=== PATIENT | male | born 1930 | race Two or more races ===

== ENCOUNTER 2018-01-19 08:03 | Inpatient (IN) | payer MEDICARE, MEDICAID ==
[~2018-01-19] VITALS: Ht 160 cm; Wt 84.4 kg
[2018-01-19] MEDS ORDERED: IV NS 0.9% 1,000 ML BAG IV ONE ×2 (08:30→09:30)
[2018-01-19] MEDS ORDERED: ALBUTEROL FS 2.5 MG/0.5 ML VIAL.NEB NEB ONE (08:30)
[2018-01-19] MEDS ORDERED: IPRATROPIUM NEB FS 0.5 MG/2.5 ML AMPUL.NEB NEB ONE (08:30)
[2018-01-19] MEDS ORDERED: MULT-213 PO (08:41)
[2018-01-19] MEDS ORDERED: ASPI-1169 PO (08:41)
[2018-01-19] MEDS ORDERED: DONE5TAB7 PO (08:41)
[2018-01-19] MEDS ORDERED: ACET325T53 PO (08:41)
[2018-01-19] MEDS ORDERED: FAMO-131 PO (08:41)
[2018-01-19] MEDS ORDERED: MIRT15TA PO (08:41)
[2018-01-19] MEDS ORDERED: DIVA125C2 PO (08:41)
[2018-01-19] MEDS ORDERED: AMLO5TAB4 PO (08:41)
[2018-01-19] MEDS ORDERED: LEVO25TA9 PO (08:41)
[2018-01-19] MEDS ORDERED: ASCO500T9 PO (08:41)
[2018-01-19] MEDS ORDERED: DOCU100C36 PO (08:41)
[2018-01-19] MEDS ORDERED: SIMV10TA6 PO (08:41)
[2018-01-19 08:54] LABS: BASOPHILS % (AUTO) 0.2 % (0.0-2.0); HEMATOCRIT 53 % (39-51); HEMOGLOBIN 17.4 g/dL (13.5-17.5); LYMPHOCYTES # (AUTO) 1.5 /CMM (0.8-4.8); LYMPHOCYTES % (AUTO) 7.8 % (20.0-44.0); MEAN CORPUSCULAR HGB CONC 33 g/dl (31.0-36.0); MEAN CORPUSCULAR VOLUME 96 fL (80-96); MONOCYTES # (AUTO) 1.1 /CMM (0.1-1.30); MONOCYTES % (AUTO) 5.9 % (2.0-12.0); NEUTROPHILS # (AUTO) 16.5 /CMM (1.8-8.9); NEUTROPHILS % (AUTO) 86.1 % (43.0-81.0); PLATELET COUNT (AUTO) 86 /CMM (150-450); RDW COEFFICIENT OF VARIATION 16.3 (11.5-15.0); RED BLOOD CELL COUNT(AUTO) 5.55 MIL/uL (4.5-6.0); WHITE BLOOD COUNT (AUTO) 19.2 K/uL (4.3-11.0)
[2018-01-19] MEDS ORDERED: ALBUTEROL FS 2.5 MG/3 ML VIAL.NEB ONE (09:01)
[2018-01-19] MEDS ORDERED: IPRATROPIUM NEB FS 0.5 MG/2.5 ML AMPUL.NEB ONE (09:01)
[2018-01-19 09:16] LABS: INR 1.34 (0.87-1.13)
[2018-01-19 09:17] LABS: ALANINE AMINOTRANSFERASE 55 U/L (12-78); ALKALINE PHOSPHATASE 115 U/L (46-116); ASPARTATE AMINOTRANSFERASE 65 U/L (15-37); BILIRUBIN,DIRECT 0.6 mg/dL (0.0-0.2); BILIRUBIN,TOTAL 2.1 mg/dL (0.2-1.0); CALCIUM, SERUM 11.4 mg/dL (8.5-10.1); CARBON DIOXIDE 25 mmol/L (21-32); GLUCOSE 126 mg/dL (74-106); POTASSIUM 3.8 mmol/L (3.5-5.1); TOTAL PROTEIN, SERUM 9.6 g/dL (6.4-8.2)
[2018-01-19 09:22] LABS: B-TYPE NATRIURETIC PEPTIDE 4555 PG/ML (0-125); LIPASE 325 U/L (73-393); SODIUM SERUM 175 mmol/L (136-145)
[2018-01-19 09:23] LABS: CHLORIDE 136 mmol/L (98-107); UREA NITROGEN, BLOOD 99 mg/dL (7-18)
[2018-01-19 09:24] LABS: TROPONIN I 0.603 ng/mL (0.00-0.056)
[2018-01-19 09:26] LABS: APPEARANCE,URINE Cloudy (CLEAR); BILIRUBIN,URINE MODERATE (NEGATIVE); BLOOD, URINE Large Ery/uL (NEGATIVE); COLOR,URINE Amber (YELLOW); KETONES,URINE 15 (NEGATIVE); LEUKOCYTE ESTERASE ,URINE Trace (NEGATIVE); NITRITE, URINE Positive (NEGATIVE); PH,URINE 5.5 (5.0-8.0); PROTEIN,URINE >=300 mg/dl (NEGATIVE); UGLUCOSE Negative (NEGATIVE)
[2018-01-19] MEDS ORDERED: ASPIRIN 300 MG/SUPP.RECT RC ONE ×2 (09:30→09:46)
[2018-01-19] MEDS ORDERED: VANCOMYCIN 1 GM in IV D5W 250 ML IV ONE (09:30)
[2018-01-19] MEDS ORDERED: PIPERACILLIN /TAZOBACTAM 3.375 G in IV D5W 50 ML IV ONE (09:30)
[2018-01-19 09:43] LABS: RBC,URINE TOO NUMEROUS TO COUN /HPF (0-2)
[2018-01-19 09:46] LABS: BACTERIA,URINE Moderate /HPF (None Seen); SQUAMOUS EPITHELIAL CELL,UR Rare /HPF (None Seen)
[2018-01-19 09:47] LABS: BAND % (MANUAL) 3 % (0.0-5.0); EOSINOPHILS % (MANUAL) 1 % (0-4); LYMPHOCYTES % (MANUAL) 12 % (16-48); MONOCYTES % (MANUAL) 8 % (0-11.0); NEUTROPHILS % (MANUAL) 76 (42-76)
[2018-01-19] MEDS ORDERED: IV NS 0.9% 1,000 ML IV PRN (10:24)
[2018-01-19] MEDS ORDERED: MAG HYDROX/AL HYDROX/SIMETH 30 ML UDC PO PRN (11:00)
[2018-01-19] MEDS ORDERED: ZOLPIDEM TARTRATE 5 MG TABLET PO PRN (11:00)
[2018-01-19] MEDS ORDERED: ONDANSETRON HCL/PF 4 MG/2 ML VIAL IVP PRN (11:00)
[2018-01-19] MEDS: DONEPEZIL 5 MG TABLET PO SCH ×2 (11:00→21:25)
[2018-01-19] MEDS: ASPIRIN 81 MG TAB.CHEW PO SCH (11:00)
[2018-01-19] MEDS: DIVALPROEX SODIUM 125 MG CAP.SPRINK PO SCH ×2 (11:00→21:25)
[2018-01-19] MEDS ORDERED: ACETAMINOPHEN 325 MG TABLET PO PRN (11:00)
[2018-01-19] MEDS: LEVOTHYROXINE SODIUM 25 MCG TABLET PO SCH (11:00)
[2018-01-19] MEDS ORDERED: IV D5/0.45 NACL 1,000 ML IV PRN (11:00)
[2018-01-19] MEDS: MIRTAZAPINE 15 MG TABLET PO SCH ×2 (11:00→22:00)
[2018-01-19 11:13] LABS: THYROID STIMULATING HORMONE 3.015 uIU/mL (0.358-3.74)
[2018-01-19] MEDS ORDERED: IV NS 0.9% 1,000 ML IV SCH (11:22)
[2018-01-19] MEDS: IV 1/2NS 1000 ML 1,000 ML IV PRN ×2 (11:52→21:26)
[2018-01-19 12:00] VITALS: BP 123/82
[2018-01-19] MEDS: ENOXAPARIN SODIUM 30 MG/0.3 ML DISP.SYRIN SQ SCH (12:54)
[2018-01-19 16:00] VITALS: BP 94/62
[2018-01-19 20:00] VITALS: BP 101/62
[2018-01-19 22:01] VITALS: BP 94/62
[2018-01-20] VITALS (15 sets, daily range): BP systolic 75–115; BP diastolic 39–72
[2018-01-20] MEDS: IV 1/2NS 1000 ML 1,000 ML IV PRN (05:54)
[2018-01-20 07:12] LABS: BASOPHILS % (AUTO) 0.1 % (0.0-2.0); EOSINOPHILS % (AUTO) 0.2 % (0.0-6.0); HEMATOCRIT 43 % (39-51); HEMOGLOBIN 14.2 g/dL (13.5-17.5); LYMPHOCYTES # (AUTO) 1.5 /CMM (0.8-4.8); LYMPHOCYTES % (AUTO) 8.3 % (20.0-44.0); MEAN CORPUSCULAR HGB CONC 33 g/dl (31.0-36.0); MEAN CORPUSCULAR VOLUME 97 fL (80-96); MONOCYTES # (AUTO) 0.5 /CMM (0.1-1.30); MONOCYTES % (AUTO) 3.1 % (2.0-12.0); NEUTROPHILS # (AUTO) 15.5 /CMM (1.8-8.9); NEUTROPHILS % (AUTO) 88.3 % (43.0-81.0); RDW COEFFICIENT OF VARIATION 16.8 (11.5-15.0); RED BLOOD CELL COUNT(AUTO) 4.43 MIL/uL (4.5-6.0); WHITE BLOOD COUNT (AUTO) 17.6 K/uL (4.3-11.0)
[2018-01-20 07:18] LABS: ALANINE AMINOTRANSFERASE 48 U/L (12-78); ALBUMIN 2.2 g/dL (3.4-5.0); ALKALINE PHOSPHATASE 89 U/L (46-116); ASPARTATE AMINOTRANSFERASE 74 U/L (15-37); BILIRUBIN,TOTAL 2.1 mg/dL (0.2-1.0); CALCIUM, SERUM 9.8 mg/dL (8.5-10.1); CARBON DIOXIDE 26 mmol/L (21-32); CREATININE 2.6 mg/dL (0.6-1.3); GLUCOSE 75 mg/dL (74-106); MAGNESIUM 3.4 mg/dL (1.8-2.4); PHOSPHORUS 3.8 mg/dL (2.5-4.9); POTASSIUM 3.5 mmol/L (3.5-5.1); TOTAL PROTEIN, SERUM 7.6 g/dL (6.4-8.2)
[2018-01-20 07:21] LABS: SODIUM SERUM 172 mmol/L (136-145)
[2018-01-20 07:22] LABS: CHLORIDE 133 mmol/L (98-107); UREA NITROGEN, BLOOD 83 mg/dL (7-18)
[2018-01-20 07:37] LABS: PLATELET COUNT (AUTO) 50 /CMM (150-450)
[2018-01-20 08:04] LABS: CHOLESTEROL 136 mg/dL (<200); HDL CHOLESTEROL 21 mg/dL (40-60); LDL 95 mg/dL (0-99); THYROID STIMULATING HORMONE 1.306 uIU/mL (0.358-3.74); TRIGLYCERIDES 161 mg/dL (30-150)
[2018-01-20 08:28] LABS: TROPONIN I 0.696 ng/mL (0.00-0.056)
[2018-01-20] MEDS: LEVOTHYROXINE SODIUM 25 MCG TABLET PO SCH (08:57)
[2018-01-20] MEDS: ASPIRIN 81 MG TAB.CHEW PO SCH (08:58)
[2018-01-20] MEDS: DIVALPROEX SODIUM 125 MG CAP.SPRINK PO SCH ×2 (08:58→21:58)
[2018-01-20] MEDS: ENOXAPARIN SODIUM 30 MG/0.3 ML DISP.SYRIN SQ SCH (08:59)
[2018-01-20 09:14] LABS: BAND % (MANUAL) 11 % (0.0-5.0); LYMPHOCYTES % (MANUAL) 5 % (16-48); MONOCYTES % (MANUAL) 3 % (0-11.0); NEUTROPHILS % (MANUAL) 81 (42-76)
[2018-01-20] MEDS ORDERED: IV NS 0.9% 500 ML IV ONE ×2 (11:30→17:00)
[2018-01-20] MEDS ORDERED: IV NS 0.9% 500 ML BAG IV ONE (11:30)
[2018-01-20] MEDS: IV D5/ 0.9% NACL 1,000 ML IV PRN ×2 (11:38→23:04)
[2018-01-20] MEDS: CEFTRIAXONE 1 G in IV D5W 50 ML IV SCH (18:22)
[2018-01-20] MEDS ORDERED: NOREPINEPHRINE 8 MG in IV D5W 500 ML IV PRN (20:00)
[2018-01-20] MEDS ORDERED: AMLODIPINE BESYLATE 5 MG TABLET PO SCH (21:00)
[2018-01-20] MEDS: DOCUSATE SODIUM 100 MG CAPSULE PO SCH (21:58)
[2018-01-20] MEDS: FAMOTIDINE (20 MG) 20 MG TABLET PO SCH (21:59)
[2018-01-20] MEDS: DONEPEZIL 5 MG TABLET PO SCH (21:59)
[2018-01-20] MEDS: ASCORBIC ACID 500 MG TABLET PO SCH (21:59)
[2018-01-20] MEDS: MIRTAZAPINE 15 MG TABLET PO SCH (21:59)
[2018-01-20] MEDS ORDERED: SIMVASTATIN 10 MG TABLET PO SCH (22:00)
[2018-01-21] VITALS (83 sets, daily range): BP systolic 73–131; BP diastolic 44–81
[2018-01-21 05:18] LABS: EOSINOPHILS % (AUTO) 0.8 % (0.0-6.0); HEMATOCRIT 37 % (39-51); HEMOGLOBIN 12.2 g/dL (13.5-17.5); LYMPHOCYTES # (AUTO) 1.2 /CMM (0.8-4.8); LYMPHOCYTES % (AUTO) 6.8 % (20.0-44.0); MEAN CORPUSCULAR HGB CONC 33 g/dl (31.0-36.0); MEAN CORPUSCULAR VOLUME 95 fL (80-96); MONOCYTES # (AUTO) 0.3 /CMM (0.1-1.30); MONOCYTES % (AUTO) 1.9 % (2.0-12.0); NEUTROPHILS # (AUTO) 15.8 /CMM (1.8-8.9); NEUTROPHILS % (AUTO) 90.5 % (43.0-81.0); PLATELET COUNT (AUTO) 59 /CMM (150-450); RDW COEFFICIENT OF VARIATION 15.9 (11.5-15.0); RED BLOOD CELL COUNT(AUTO) 3.85 MIL/uL (4.5-6.0); WHITE BLOOD COUNT (AUTO) 17.5 K/uL (4.3-11.0)
[2018-01-21 05:57] LABS: ALANINE AMINOTRANSFERASE 38 U/L (12-78); ALBUMIN 1.7 g/dL (3.4-5.0); ALKALINE PHOSPHATASE 75 U/L (46-116); ASPARTATE AMINOTRANSFERASE 74 U/L (15-37); BILIRUBIN,TOTAL 1.1 mg/dL (0.2-1.0); CALCIUM, SERUM 8.9 mg/dL (8.5-10.1); CARBON DIOXIDE 21 mmol/L (21-32); CREATININE 1.8 mg/dL (0.6-1.3); GLUCOSE 130 mg/dL (74-106); MAGNESIUM 2.5 mg/dL (1.8-2.4); PHOSPHORUS 1.4 mg/dL (2.5-4.9); TOTAL PROTEIN, SERUM 6.3 g/dL (6.4-8.2); UREA NITROGEN, BLOOD 56 mg/dL (7-18)
[2018-01-21 06:13] LABS: BLASTS, MANUAL % 1 % (0-0); MYELOCYTES % 1 % (0-0); PROMYELOCYTES % 1 % (0-0)
[2018-01-21 06:14] LABS: BAND % (MANUAL) 5 % (0.0-5.0); EOSINOPHILS % (MANUAL) 2 % (0-4); LYMPHOCYTES % (MANUAL) 5 % (16-48); NEUTROPHILS % (MANUAL) 85 (42-76)
[2018-01-21 06:19] LABS: TROPONIN I 0.587 ng/mL (0.00-0.056)
[2018-01-21 06:20] LABS: CHLORIDE 133 mmol/L (98-107); POTASSIUM 2.8 mmol/L (3.5-5.1); SODIUM SERUM 165 mmol/L (136-145)
[2018-01-21] MEDS: IV D5/ 0.9% NACL 1,000 ML IV PRN (06:28)
[2018-01-21] MEDS ORDERED: POTASSIUM PHOSPHATE MM 15 MMOL in IV D5W 250 ML IV SCH (07:00)
[2018-01-21] MEDS: POTASSIUM PHOSPHATE MM 7.5 MMOL in IV D5W 100 ML IV SCH ×2 (08:31→11:41)
[2018-01-21] MEDS: ASPIRIN 81 MG TAB.CHEW PO SCH (08:31)
[2018-01-21] MEDS: LEVOTHYROXINE SODIUM 25 MCG TABLET PO SCH (08:31)
[2018-01-21] MEDS: ASCORBIC ACID 500 MG TABLET PO SCH (08:34)
[2018-01-21] MEDS: DOCUSATE SODIUM 100 MG CAPSULE PO SCH (08:34)
[2018-01-21] MEDS: FAMOTIDINE (20 MG) 20 MG TABLET PO SCH (08:35)
[2018-01-21] MEDS: ENOXAPARIN SODIUM 30 MG/0.3 ML DISP.SYRIN SQ SCH (08:36)
[2018-01-21] MEDS: DIVALPROEX SODIUM 125 MG CAP.SPRINK PO SCH ×2 (09:36→21:32)
[2018-01-21] MEDS ORDERED: POTASSIUM CL. PREMIX PERIPHER. 50 ML IV SCH (11:02)
[2018-01-21] MEDS: POTASSIUM CL. PREMIX PERIPHER. 50 ML IV SCH ×4 (11:44→15:55)
[2018-01-21] MEDS: IV D5/0.45 NACL 1,000 ML IV PRN ×2 (12:07→21:34)
[2018-01-21 12:43] LABS: ABG BASE EXCESS -4.4 mmol/L; ABG OXYGEN SATURATION 94.9 % (92.0-98.5); ABG PCO2 28.9 mmHg (35.0-45.0); ABG PO2 74.6 mmHg (75.0-100.0); AaDO2 119.7 mmHg; COHb 0.3 % (0.5-1.5); MetHb 0.6 % (0.0-1.5); SITE, ABG Right Radial; VENT MODE, BG 3 lpm
[2018-01-21] MEDS: CEFTRIAXONE 1 G in IV D5W 50 ML IV SCH (17:18)
[2018-01-21] MEDS ORDERED: FEE PK DOSING 1 MIN EA MC ONE (20:03)
[2018-01-21] MEDS: MEROPENEM 500 MG in IV NS 0.9% 50 ML IV SCH (21:29)
[2018-01-21] MEDS: DONEPEZIL 5 MG TABLET PO SCH (21:33)
[2018-01-21] MEDS: MIRTAZAPINE 15 MG TABLET PO SCH (21:34)
[2018-01-21] MEDS ORDERED: VANCOMYCIN 500 MG in IV NS 0.9% 100 ML IV SCH (22:00)
[2018-01-22] VITALS (95 sets, daily range): BP systolic 68–138; BP diastolic 42–85
[2018-01-22 05:15] LABS: EOSINOPHILS % (AUTO) 4.4 % (0.0-6.0); HEMATOCRIT 36 % (39-51); HEMOGLOBIN 12.1 g/dL (13.5-17.5); LYMPHOCYTES # (AUTO) 1.1 /CMM (0.8-4.8); LYMPHOCYTES % (AUTO) 5.8 % (20.0-44.0); MEAN CORPUSCULAR HGB CONC 33 g/dl (31.0-36.0); MEAN CORPUSCULAR VOLUME 94 fL (80-96); MONOCYTES # (AUTO) 0.4 /CMM (0.1-1.30); MONOCYTES % (AUTO) 2.2 % (2.0-12.0); NEUTROPHILS # (AUTO) 16.9 /CMM (1.8-8.9); NEUTROPHILS % (AUTO) 87.6 % (43.0-81.0); RED BLOOD CELL COUNT(AUTO) 3.84 MIL/uL (4.5-6.0); WHITE BLOOD COUNT (AUTO) 19.2 K/uL (4.3-11.0)
[2018-01-22 05:32] LABS: PLATELET COUNT (AUTO) 47 /CMM (150-450)
[2018-01-22 05:42] LABS: ALANINE AMINOTRANSFERASE 38 U/L (12-78); ALBUMIN 1.5 g/dL (3.4-5.0); ALKALINE PHOSPHATASE 83 U/L (46-116); ASPARTATE AMINOTRANSFERASE 70 U/L (15-37); BILIRUBIN,TOTAL 0.9 mg/dL (0.2-1.0); CALCIUM, SERUM 8.3 mg/dL (8.5-10.1); CARBON DIOXIDE 24 mmol/L (21-32); CHLORIDE 123 mmol/L (98-107); CREATININE 1.3 mg/dL (0.6-1.3); GLUCOSE 133 mg/dL (74-106); PHOSPHORUS 1.7 mg/dL (2.5-4.9); TOTAL PROTEIN, SERUM 5.9 g/dL (6.4-8.2); UREA NITROGEN, BLOOD 26 mg/dL (7-18)
[2018-01-22 05:53] LABS: EOSINOPHILS % (MANUAL) 4 % (0-4); LYMPHOCYTES % (MANUAL) 6 % (16-48); MONOCYTES % (MANUAL) 2 % (0-11.0); NEUTROPHILS % (MANUAL) 88 (42-76)
[2018-01-22 06:01] LABS: POTASSIUM 2.7 mmol/L (3.5-5.1); SODIUM SERUM 156 mmol/L (136-145)
[2018-01-22] MEDS: IV D5/0.45 NACL 1,000 ML IV PRN ×2 (06:11→15:02)
[2018-01-22] MEDS: ASCORBIC ACID 500 MG TABLET PO SCH (08:14)
[2018-01-22] MEDS: LEVOTHYROXINE SODIUM 25 MCG TABLET PO SCH (08:14)
[2018-01-22] MEDS: DIVALPROEX SODIUM 125 MG CAP.SPRINK PO SCH ×2 (08:14→20:46)
[2018-01-22] MEDS: ASPIRIN 81 MG TAB.CHEW PO SCH (08:14)
[2018-01-22] MEDS: DOCUSATE SODIUM 100 MG CAPSULE PO SCH (08:15)
[2018-01-22] MEDS: FAMOTIDINE (20 MG) 20 MG TABLET PO SCH (08:15)
[2018-01-22] MEDS: POTASSIUM CHLORIDE 20 MEQ POWDER PACKET NG SCH ×6 (08:33→13:30)
[2018-01-22] MEDS: MEROPENEM 500 MG in IV NS 0.9% 50 ML IV SCH ×2 (08:34→20:44)
[2018-01-22] MEDS: NOREPINEPHRINE 8 MG in IV D5W 500 ML IV PRN (08:38)
[2018-01-22] MEDS ORDERED: POTASSIUM CL. PREMIX PERIPHER. 50 ML IV SCH (09:00)
[2018-01-22] MEDS: JEVITY 1.2 CAL 1,000 ML BOTTLE GT PRN (13:02)
[2018-01-22] MEDS: VANCOMYCIN 1 GM in IV D5W 250 ML IV SCH (17:04)
[2018-01-22] MEDS: MIRTAZAPINE 15 MG TABLET PO SCH (21:54)
[2018-01-22] MEDS: DONEPEZIL 5 MG TABLET PO SCH (21:54)
[2018-01-23] VITALS (94 sets, daily range): BP systolic 78–146; BP diastolic 36–80
[2018-01-23] MEDS: IV D5/0.45 NACL 1,000 ML IV PRN ×3 (00:41→19:53)
[2018-01-23 05:03] LABS: EOSINOPHILS % (AUTO) 4.6 % (0.0-6.0); HEMATOCRIT 37 % (39-51); HEMOGLOBIN 12.2 g/dL (13.5-17.5); LYMPHOCYTES # (AUTO) 1.1 /CMM (0.8-4.8); LYMPHOCYTES % (AUTO) 6.1 % (20.0-44.0); MEAN CORPUSCULAR HGB CONC 34 g/dl (31.0-36.0); MEAN CORPUSCULAR VOLUME 95 fL (80-96); MONOCYTES # (AUTO) 0.7 /CMM (0.1-1.30); MONOCYTES % (AUTO) 3.8 % (2.0-12.0); NEUTROPHILS # (AUTO) 14.8 /CMM (1.8-8.9); NEUTROPHILS % (AUTO) 85.5 % (43.0-81.0); RDW COEFFICIENT OF VARIATION 15.8 (11.5-15.0); RED BLOOD CELL COUNT(AUTO) 3.85 MIL/uL (4.5-6.0); WHITE BLOOD COUNT (AUTO) 17.3 K/uL (4.3-11.0)
[2018-01-23 05:12] LABS: PLATELET COUNT (AUTO) 48 /CMM (150-450)
[2018-01-23 05:25] LABS: ALANINE AMINOTRANSFERASE 35 U/L (12-78); ALKALINE PHOSPHATASE 83 U/L (46-116); ASPARTATE AMINOTRANSFERASE 67 U/L (15-37); BILIRUBIN,TOTAL 0.8 mg/dL (0.2-1.0); CARBON DIOXIDE 22 mmol/L (21-32); CHLORIDE 116 mmol/L (98-107); GLUCOSE 129 mg/dL (74-106); MAGNESIUM 2.2 mg/dL (1.8-2.4); PHOSPHORUS 1.3 mg/dL (2.5-4.9); POTASSIUM 3.5 mmol/L (3.5-5.1); SODIUM SERUM 146 mmol/L (136-145); TOTAL PROTEIN, SERUM 5.8 g/dL (6.4-8.2); UREA NITROGEN, BLOOD 14 mg/dL (7-18)
[2018-01-23 05:32] LABS: ALBUMIN 1.4 g/dL (3.4-5.0)
[2018-01-23 06:08] LABS: LYMPHOCYTES % (MANUAL) 6 % (16-48); NEUTROPHILS % (MANUAL) 86 (42-76)
[2018-01-23 06:09] LABS: EOSINOPHILS % (MANUAL) 4 % (0-4); MONOCYTES % (MANUAL) 4 % (0-11.0)
[2018-01-23] MEDS ORDERED: POTASSIUM CHLORIDE 20 MEQ POWDER PACKET NG SCH (08:30)
[2018-01-23] MEDS: DIVALPROEX SODIUM 125 MG CAP.SPRINK PO SCH ×2 (08:59→21:17)
[2018-01-23] MEDS: ASPIRIN 81 MG TAB.CHEW PO SCH (08:59)
[2018-01-23] MEDS: DOCUSATE SODIUM 100 MG CAPSULE PO SCH (08:59)
[2018-01-23] MEDS: ASCORBIC ACID 500 MG TABLET PO SCH (08:59)
[2018-01-23] MEDS: FAMOTIDINE (20 MG) 20 MG TABLET PO SCH (08:59)
[2018-01-23] MEDS: MEROPENEM 500 MG in IV NS 0.9% 50 ML IV SCH ×2 (08:59→21:17)
[2018-01-23] MEDS: LEVOTHYROXINE SODIUM 25 MCG TABLET PO SCH (08:59)
[2018-01-23] MEDS: NOREPINEPHRINE 8 MG in IV D5W 500 ML IV PRN (10:17)
[2018-01-23] MEDS: VANCOMYCIN 1 GM in IV D5W 250 ML IV SCH (10:25)
[2018-01-23] MEDS ORDERED: LIDOCAINE 1% INJ 50 ML MDV IJ ONE (13:00)
[2018-01-23 13:51] LABS: IRON, SERUM 41 ug/dl (50-175); TOTAL IRON BINDING CAPACITY 85 ug/dl (250-450)
[2018-01-23] MEDS ORDERED: NEUTRA PHOS 1 POWD.PACKET GT ONE (14:00)
[2018-01-23 14:04] LABS: FERRITIN 301 ng/mL (8-388)
[2018-01-23 14:14] LABS: INR 1.17 (0.87-1.13)
[2018-01-23 14:23] LABS: D-DIMER 11.95 mg/L(FEU (0.17-0.50)
[2018-01-23] MEDS: LACTOBACILLUS RHAMNOSUS GG 1 EACH CAP.SPRINK GT SCH (16:34)
[2018-01-23] MEDS ORDERED: Z GUARD REMEDY 2 OZ OINT TP PRN (17:00)
[2018-01-23] MEDS: JEVITY 1.2 CAL 1,000 ML BOTTLE GT PRN (18:18)
[2018-01-23] MEDS: MIRTAZAPINE 15 MG TABLET PO SCH (21:17)
[2018-01-23] MEDS: DONEPEZIL 5 MG TABLET PO SCH (21:17)
[2018-01-24] VITALS (63 sets, daily range): BP systolic 54–123; BP diastolic 34–95
[2018-01-24] MEDS: IV D5/0.45 NACL 1,000 ML IV PRN (04:45)
[2018-01-24] MEDS: VANCOMYCIN 1 GM in IV D5W 250 ML IV SCH ×2 (04:54→22:16)
[2018-01-24] MEDS: NOREPINEPHRINE 8 MG in IV D5W 500 ML IV PRN ×2 (05:02→18:01)
[2018-01-24 05:10] LABS: EOSINOPHILS % (AUTO) 5.1 % (0.0-6.0); HEMATOCRIT 36 % (39-51); LYMPHOCYTES % (AUTO) 8.2 % (20.0-44.0); MEAN CORPUSCULAR HGB CONC 34 g/dl (31.0-36.0); MEAN CORPUSCULAR VOLUME 95 fL (80-96); MONOCYTES # (AUTO) 0.6 /CMM (0.1-1.30); MONOCYTES % (AUTO) 5.3 % (2.0-12.0); NEUTROPHILS # (AUTO) 9.8 /CMM (1.8-8.9); NEUTROPHILS % (AUTO) 81.4 % (43.0-81.0); PLATELET COUNT (AUTO) 52 /CMM (150-450); RDW COEFFICIENT OF VARIATION 15.9 (11.5-15.0); RED BLOOD CELL COUNT(AUTO) 3.76 MIL/uL (4.5-6.0); WHITE BLOOD COUNT (AUTO) 12.1 K/uL (4.3-11.0)
[2018-01-24 05:18] LABS: CALCIUM, SERUM 7.8 mg/dL (8.5-10.1); CARBON DIOXIDE 25 mmol/L (21-32); CHLORIDE 114 mmol/L (98-107); GLUCOSE 137 mg/dL (74-106); MAGNESIUM 1.8 mg/dL (1.8-2.4); POTASSIUM 3.7 mmol/L (3.5-5.1); SODIUM SERUM 146 mmol/L (136-145); UREA NITROGEN, BLOOD 10 mg/dL (7-18)
[2018-01-24 06:19] LABS: BAND % (MANUAL) 4 % (0.0-5.0); EOSINOPHILS % (MANUAL) 3 % (0-4); LYMPHOCYTES % (MANUAL) 4 % (16-48); METAMYELOCYTES % 1 % (0-0); MONOCYTES % (MANUAL) 2 % (0-11.0); MYELOCYTES % 1 % (0-0); NEUTROPHILS % (MANUAL) 85 (42-76)
[2018-01-24] MEDS ORDERED: NEUTRA PHOS 1 POWD.PACKET GT ONE (09:30)
[2018-01-24] MEDS: DOCUSATE SODIUM 100 MG CAPSULE PO SCH (09:41)
[2018-01-24] MEDS: LACTOBACILLUS RHAMNOSUS GG 1 EACH CAP.SPRINK GT SCH ×2 (09:42→16:48)
[2018-01-24] MEDS: ASPIRIN 81 MG TAB.CHEW PO SCH (09:42)
[2018-01-24] MEDS: FAMOTIDINE (20 MG) 20 MG TABLET PO SCH (09:43)
[2018-01-24] MEDS: ASCORBIC ACID 500 MG TABLET PO SCH (09:43)
[2018-01-24] MEDS: DIVALPROEX SODIUM 125 MG CAP.SPRINK PO SCH ×2 (09:43→21:07)
[2018-01-24] MEDS: LEVOTHYROXINE SODIUM 25 MCG TABLET PO SCH (09:43)
[2018-01-24] MEDS ORDERED: MEROPENEM 1 G in IV NS 0.9% 100 ML IV SCH (10:00)
[2018-01-24] MEDS: IV NS 0.9% 1,000 ML IV PRN ×2 (11:56→19:29)
[2018-01-24] MEDS ORDERED: MEROPENEM 500 MG in IV NS 0.9% 50 ML IV ONE (12:00)
[2018-01-24] MEDS: JEVITY 1.2 CAL 1,000 ML BOTTLE GT PRN (15:08)
[2018-01-24] MEDS: MIRTAZAPINE 15 MG TABLET PO SCH (21:07)
[2018-01-24] MEDS: DONEPEZIL 5 MG TABLET PO SCH (21:07)
[2018-01-24] MEDS: MEROPENEM 1 G in IV NS 0.9% 100 ML IV SCH (21:08)
[2018-01-25] VITALS (107 sets, daily range): BP systolic 71–145; BP diastolic 22–83
[2018-01-25] MEDS: IV NS 0.9% 1,000 ML IV PRN (04:15)
[2018-01-25 04:51] LABS: CALCIUM, SERUM 7.6 mg/dL (8.5-10.1); CARBON DIOXIDE 26 mmol/L (21-32); CHLORIDE 115 mmol/L (98-107); CREATININE 0.9 mg/dL (0.6-1.3); GLUCOSE 92 mg/dL (74-106); PHOSPHORUS 2.8 mg/dL (2.5-4.9); POTASSIUM 4.1 mmol/L (3.5-5.1); SODIUM SERUM 147 mmol/L (136-145); UREA NITROGEN, BLOOD 10 mg/dL (7-18)
[2018-01-25 05:38] LABS: BASOPHILS % (AUTO) 0.1 % (0.0-2.0); EOSINOPHILS % (AUTO) 4.8 % (0.0-6.0); HEMATOCRIT 33 % (39-51); HEMOGLOBIN 11.2 g/dL (13.5-17.5); LYMPHOCYTES # (AUTO) 0.9 /CMM (0.8-4.8); LYMPHOCYTES % (AUTO) 8.4 % (20.0-44.0); MEAN CORPUSCULAR HGB CONC 34 g/dl (31.0-36.0); MEAN CORPUSCULAR VOLUME 95 fL (80-96); MONOCYTES # (AUTO) 0.6 /CMM (0.1-1.30); MONOCYTES % (AUTO) 5.2 % (2.0-12.0); NEUTROPHILS # (AUTO) 9.1 /CMM (1.8-8.9); NEUTROPHILS % (AUTO) 81.5 % (43.0-81.0); PLATELET COUNT (AUTO) 65 /CMM (150-450); RDW COEFFICIENT OF VARIATION 16.1 (11.5-15.0); RED BLOOD CELL COUNT(AUTO) 3.53 MIL/uL (4.5-6.0); WHITE BLOOD COUNT (AUTO) 11.1 K/uL (4.3-11.0)
[2018-01-25 06:03] LABS: BAND % (MANUAL) 6 % (0.0-5.0); EOSINOPHILS % (MANUAL) 6 % (0-4); LYMPHOCYTES % (MANUAL) 10 % (16-48); MONOCYTES % (MANUAL) 6 % (0-11.0); NEUTROPHILS % (MANUAL) 69 (42-76)
[2018-01-25 06:04] LABS: METAMYELOCYTES % 2 % (0-0); MYELOCYTES % 1 % (0-0)
[2018-01-25] MEDS: ASCORBIC ACID 500 MG TABLET PO SCH (08:44)
[2018-01-25] MEDS: LACTOBACILLUS RHAMNOSUS GG 1 EACH CAP.SPRINK GT SCH ×2 (08:44→17:15)
[2018-01-25] MEDS: LEVOTHYROXINE SODIUM 25 MCG TABLET PO SCH (08:44)
[2018-01-25] MEDS: HYDROCORTISONE SOD SUCCINATE 100 MG/2 ML VIAL IV SCH ×3 (08:44→17:14)
[2018-01-25] MEDS: DIVALPROEX SODIUM 125 MG CAP.SPRINK PO SCH ×2 (08:45→21:09)
[2018-01-25] MEDS: FAMOTIDINE (20 MG) 20 MG TABLET PO SCH (08:45)
[2018-01-25] MEDS: DOCUSATE SODIUM 100 MG CAPSULE PO SCH (08:45)
[2018-01-25] MEDS: MEROPENEM 1 G in IV NS 0.9% 100 ML IV SCH ×2 (08:52→21:09)
[2018-01-25] MEDS: NOREPINEPHRINE 8 MG in IV D5W 500 ML IV PRN (10:16)
[2018-01-25] MEDS: JEVITY 1.2 CAL 1,000 ML BOTTLE GT PRN (11:23)
[2018-01-25] MEDS: MIDODRINE HCL (5MG) 5 MG TABLET PO SCH ×3 (11:28→17:15)
[2018-01-25] MEDS: VANCOMYCIN 1 GM in IV D5W 250 ML IV SCH (17:14)
[2018-01-25] MEDS: MIRTAZAPINE 15 MG TABLET PO SCH (21:09)
[2018-01-25] MEDS: DONEPEZIL 5 MG TABLET PO SCH (21:09)
[2018-01-26] VITALS (108 sets, daily range): BP systolic 58–143; BP diastolic 36–83
[2018-01-26 04:22] LABS: BASOPHILS % (AUTO) 0.1 % (0.0-2.0); HEMATOCRIT 33 % (39-51); HEMOGLOBIN 10.8 g/dL (13.5-17.5); LYMPHOCYTES # (AUTO) 0.6 /CMM (0.8-4.8); LYMPHOCYTES % (AUTO) 4.2 % (20.0-44.0); MEAN CORPUSCULAR HGB CONC 33 g/dl (31.0-36.0); MEAN CORPUSCULAR VOLUME 94 fL (80-96); MONOCYTES # (AUTO) 0.3 /CMM (0.1-1.30); MONOCYTES % (AUTO) 2.2 % (2.0-12.0); NEUTROPHILS # (AUTO) 13.9 /CMM (1.8-8.9); NEUTROPHILS % (AUTO) 93.5 % (43.0-81.0); PLATELET COUNT (AUTO) 93 /CMM (150-450); RDW COEFFICIENT OF VARIATION 15.7 (11.5-15.0); RED BLOOD CELL COUNT(AUTO) 3.44 MIL/uL (4.5-6.0); WHITE BLOOD COUNT (AUTO) 14.9 K/uL (4.3-11.0)
[2018-01-26 04:37] LABS: CALCIUM, SERUM 8.1 mg/dL (8.5-10.1); CARBON DIOXIDE 27 mmol/L (21-32); CHLORIDE 112 mmol/L (98-107); GLUCOSE 142 mg/dL (74-106); MAGNESIUM 2.2 mg/dL (1.8-2.4); PHOSPHORUS 2.6 mg/dL (2.5-4.9); POTASSIUM 3.6 mmol/L (3.5-5.1); SODIUM SERUM 145 mmol/L (136-145); UREA NITROGEN, BLOOD 16 mg/dL (7-18)
[2018-01-26] MEDS: IV NS 0.9% 250 ML IV PRN (04:47)
[2018-01-26] MEDS: HYDROCORTISONE SOD SUCCINATE 100 MG/2 ML VIAL IV SCH ×3 (08:46→17:42)
[2018-01-26] MEDS: DOCUSATE SODIUM 100 MG CAPSULE PO SCH (08:46)
[2018-01-26] MEDS: LACTOBACILLUS RHAMNOSUS GG 1 EACH CAP.SPRINK GT SCH ×2 (08:46→17:42)
[2018-01-26] MEDS: LEVOTHYROXINE SODIUM 25 MCG TABLET PO SCH (08:46)
[2018-01-26] MEDS: DIVALPROEX SODIUM 125 MG CAP.SPRINK PO SCH ×2 (08:46→21:19)
[2018-01-26] MEDS: ASCORBIC ACID 500 MG TABLET PO SCH (08:46)
[2018-01-26] MEDS: FAMOTIDINE (20 MG) 20 MG TABLET PO SCH (08:46)
[2018-01-26] MEDS: MEROPENEM 1 G in IV NS 0.9% 100 ML IV SCH ×2 (08:46→21:19)
[2018-01-26] MEDS: MIDODRINE HCL (5MG) 5 MG TABLET PO SCH ×3 (08:51→17:42)
[2018-01-26] MEDS ORDERED: FLUDROCORTISONE 0.1 MG TABLET PO SCH (09:00)
[2018-01-26] MEDS: IV NS 0.9% 1,000 ML IV PRN ×3 (09:06→18:57)
[2018-01-26] MEDS: VANCOMYCIN 1 GM in IV D5W 250 ML IV SCH (11:28)
[2018-01-26] MEDS: JEVITY 1.2 CAL 1,000 ML BOTTLE GT PRN (12:46)
[2018-01-26] MEDS: NOREPINEPHRINE 8 MG in IV D5W 500 ML IV PRN (17:51)
[2018-01-26] MEDS: DONEPEZIL 5 MG TABLET PO SCH (21:18)
[2018-01-26] MEDS: MIRTAZAPINE 15 MG TABLET PO SCH (21:18)
[2018-01-27] VITALS (93 sets, daily range): BP systolic 64–132; BP diastolic 25–73
[2018-01-27] MEDS: IV NS 0.9% 1,000 ML IV PRN ×3 (02:22→20:55)
[2018-01-27] MEDS: VANCOMYCIN 1 GM in IV D5W 250 ML IV SCH ×2 (04:30→22:46)
[2018-01-27 04:46] LABS: BASOPHILS % (AUTO) 0.1 % (0.0-2.0); HEMATOCRIT 32 % (39-51); HEMOGLOBIN 10.7 g/dL (13.5-17.5); LYMPHOCYTES # (AUTO) 0.6 /CMM (0.8-4.8); LYMPHOCYTES % (AUTO) 3.6 % (20.0-44.0); MEAN CORPUSCULAR HGB CONC 34 g/dl (31.0-36.0); MEAN CORPUSCULAR VOLUME 94 fL (80-96); MONOCYTES # (AUTO) 0.4 /CMM (0.1-1.30); MONOCYTES % (AUTO) 2.4 % (2.0-12.0); NEUTROPHILS # (AUTO) 16.2 /CMM (1.8-8.9); NEUTROPHILS % (AUTO) 93.9 % (43.0-81.0); PLATELET COUNT (AUTO) 124 /CMM (150-450); RDW COEFFICIENT OF VARIATION 15.6 (11.5-15.0); RED BLOOD CELL COUNT(AUTO) 3.36 MIL/uL (4.5-6.0); WHITE BLOOD COUNT (AUTO) 17.2 K/uL (4.3-11.0)
[2018-01-27 05:09] LABS: ALANINE AMINOTRANSFERASE 44 U/L (12-78); ALKALINE PHOSPHATASE 81 U/L (46-116); ASPARTATE AMINOTRANSFERASE 49 U/L (15-37); BILIRUBIN,TOTAL 0.5 mg/dL (0.2-1.0); CALCIUM, SERUM 7.7 mg/dL (8.5-10.1); CARBON DIOXIDE 26 mmol/L (21-32); CHLORIDE 113 mmol/L (98-107); CREATININE 0.9 mg/dL (0.6-1.3); GLUCOSE 127 mg/dL (74-106); MAGNESIUM 2.3 mg/dL (1.8-2.4); PHOSPHORUS 2.5 mg/dL (2.5-4.9); POTASSIUM 3.4 mmol/L (3.5-5.1); SODIUM SERUM 146 mmol/L (136-145); TOTAL PROTEIN, SERUM 5.6 g/dL (6.4-8.2); UREA NITROGEN, BLOOD 19 mg/dL (7-18)
[2018-01-27 05:15] LABS: ALBUMIN 1.2 g/dL (3.4-5.0)
[2018-01-27] MEDS: LACTOBACILLUS RHAMNOSUS GG 1 EACH CAP.SPRINK GT SCH ×2 (08:43→17:14)
[2018-01-27] MEDS: MIDODRINE HCL (5MG) 5 MG TABLET PO SCH ×3 (08:44→17:15)
[2018-01-27] MEDS: FAMOTIDINE (20 MG) 20 MG TABLET PO SCH (08:44)
[2018-01-27] MEDS: LEVOTHYROXINE SODIUM 25 MCG TABLET PO SCH (08:44)
[2018-01-27] MEDS: DOCUSATE SODIUM 100 MG CAPSULE PO SCH (08:44)
[2018-01-27] MEDS: ASCORBIC ACID 500 MG TABLET PO SCH (08:44)
[2018-01-27] MEDS: DIVALPROEX SODIUM 125 MG CAP.SPRINK PO SCH ×2 (08:44→21:11)
[2018-01-27] MEDS: MEROPENEM 1 G in IV NS 0.9% 100 ML IV SCH ×2 (08:45→21:11)
[2018-01-27] MEDS: HYDROCORTISONE SOD SUCCINATE 100 MG/2 ML VIAL IV SCH ×3 (08:45→17:14)
[2018-01-27] MEDS ORDERED: POTASSIUM CHLORIDE 20 MEQ POWDER PACKET GT SCH (12:00)
[2018-01-27] MEDS: JEVITY 1.2 CAL 1,000 ML BOTTLE GT PRN (12:41)
[2018-01-27] MEDS: NOREPINEPHRINE 8 MG in IV D5W 500 ML IV PRN (17:18)
[2018-01-27] MEDS: MIRTAZAPINE 15 MG TABLET PO SCH (21:08)
[2018-01-27] MEDS: DONEPEZIL 5 MG TABLET PO SCH (21:09)
[2018-01-28] VITALS (68 sets, daily range): BP systolic 73–135; BP diastolic 41–91
[2018-01-28 04:41] LABS: CALCIUM, SERUM 7.7 mg/dL (8.5-10.1); CARBON DIOXIDE 25 mmol/L (21-32); CHLORIDE 113 mmol/L (98-107); CREATININE 0.9 mg/dL (0.6-1.3); GLUCOSE 144 mg/dL (74-106); POTASSIUM 3.2 mmol/L (3.5-5.1); SODIUM SERUM 146 mmol/L (136-145); UREA NITROGEN, BLOOD 21 mg/dL (7-18)
[2018-01-28] MEDS: JEVITY 1.2 CAL 1,000 ML BOTTLE GT PRN (05:37)
[2018-01-28] MEDS: IV NS 0.9% 1,000 ML IV PRN (05:37)
[2018-01-28] MEDS ORDERED: POTASSIUM CHLORIDE 20 MEQ TAB.PRT.SR PO SCH (09:00)
[2018-01-28] MEDS: FAMOTIDINE (20 MG) 20 MG TABLET PO SCH (09:08)
[2018-01-28] MEDS: MIDODRINE HCL (5MG) 5 MG TABLET PO SCH ×3 (09:08→16:24)
[2018-01-28] MEDS: LEVOTHYROXINE SODIUM 25 MCG TABLET PO SCH (09:08)
[2018-01-28] MEDS: ASCORBIC ACID 500 MG TABLET PO SCH (09:08)
[2018-01-28] MEDS: HYDROCORTISONE SOD SUCCINATE 100 MG/2 ML VIAL IV SCH ×3 (09:09→16:23)
[2018-01-28] MEDS: LACTOBACILLUS RHAMNOSUS GG 1 EACH CAP.SPRINK GT SCH ×2 (09:09→16:23)
[2018-01-28] MEDS: DIVALPROEX SODIUM 125 MG CAP.SPRINK PO SCH ×2 (09:09→21:12)
[2018-01-28] MEDS: MEROPENEM 1 G in IV NS 0.9% 100 ML IV SCH ×2 (09:09→21:05)
[2018-01-28] MEDS: Z GUARD REMEDY 2 OZ OINT TP PRN ×2 (09:10→16:25)
[2018-01-28] MEDS: DOCUSATE SODIUM LIQ 100 MG/10 ML UDC GT SCH ×2 (09:23→16:24)
[2018-01-28] MEDS: POTASSIUM CHLORIDE 20 MEQ POWDER PACKET GT SCH ×3 (09:23→11:50)
[2018-01-28] MEDS: OLANZAPINE 2.5 MG TABLET GT SCH ×2 (11:50→16:24)
[2018-01-28] MEDS: VANCOMYCIN 0.75 GM in IV D5W 250 ML IV SCH (12:05)
[2018-01-28] MEDS: NOREPINEPHRINE 8 MG in IV D5W 500 ML IV PRN (16:23)
[2018-01-28] MEDS: DONEPEZIL 5 MG TABLET PO SCH (21:12)
[2018-01-28] MEDS: MIRTAZAPINE 15 MG TABLET PO SCH (21:12)
[2018-01-29] VITALS (60 sets, daily range): BP systolic 63–133; BP diastolic 37–82
[2018-01-29 04:44] LABS: CALCIUM, SERUM 8.1 mg/dL (8.5-10.1); CARBON DIOXIDE 23 mmol/L (21-32); CHLORIDE 110 mmol/L (98-107); CREATININE 0.9 mg/dL (0.6-1.3); GLUCOSE 138 mg/dL (74-106); POTASSIUM 3.8 mmol/L (3.5-5.1); SODIUM SERUM 141 mmol/L (136-145); UREA NITROGEN, BLOOD 24 mg/dL (7-18)
[2018-01-29] MEDS: VANCOMYCIN 0.75 GM in IV D5W 250 ML IV SCH (06:00)
[2018-01-29] MEDS: JEVITY 1.2 CAL 1,000 ML BOTTLE GT PRN (06:02)
[2018-01-29 08:09] LABS: HEMATOCRIT 36 % (39-51); HEMOGLOBIN 12.2 g/dL (13.5-17.5); LYMPHOCYTES # (AUTO) 0.8 /CMM (0.8-4.8); LYMPHOCYTES % (AUTO) 3.2 % (20.0-44.0); MEAN CORPUSCULAR HGB CONC 34 g/dl (31.0-36.0); MEAN CORPUSCULAR VOLUME 95 fL (80-96); MONOCYTES # (AUTO) 0.9 /CMM (0.1-1.30); MONOCYTES % (AUTO) 3.6 % (2.0-12.0); NEUTROPHILS # (AUTO) 22.2 /CMM (1.8-8.9); NEUTROPHILS % (AUTO) 93.2 % (43.0-81.0); PLATELET COUNT (AUTO) 219 /CMM (150-450); RED BLOOD CELL COUNT(AUTO) 3.81 MIL/uL (4.5-6.0); WHITE BLOOD COUNT (AUTO) 23.8 K/uL (4.3-11.0)
[2018-01-29] MEDS: OLANZAPINE 2.5 MG TABLET GT SCH ×2 (08:20→16:06)
[2018-01-29] MEDS: LEVOTHYROXINE SODIUM 25 MCG TABLET PO SCH (08:20)
[2018-01-29] MEDS: FAMOTIDINE (20 MG) 20 MG TABLET PO SCH (08:20)
[2018-01-29] MEDS: HYDROCORTISONE SOD SUCCINATE 100 MG/2 ML VIAL IV SCH ×3 (08:20→16:06)
[2018-01-29] MEDS: ASCORBIC ACID 500 MG TABLET PO SCH (08:20)
[2018-01-29] MEDS: MIDODRINE HCL (5MG) 5 MG TABLET PO SCH ×3 (08:20→16:06)
[2018-01-29] MEDS: DIVALPROEX SODIUM 125 MG CAP.SPRINK PO SCH ×2 (08:20→21:19)
[2018-01-29] MEDS: LACTOBACILLUS RHAMNOSUS GG 1 EACH CAP.SPRINK GT SCH ×2 (08:20→16:06)
[2018-01-29] MEDS: DOCUSATE SODIUM LIQ 100 MG/10 ML UDC GT SCH ×2 (08:20→16:06)
[2018-01-29] MEDS: Z GUARD REMEDY 2 OZ OINT TP PRN (08:21)
[2018-01-29] MEDS ORDERED: IV NS 0.9% 500 ML IV ONE (10:00)
[2018-01-29] MEDS: IPRATROPIUM NEB FS 0.5 MG/2.5 ML AMPUL.NEB NEB SCH ×3 (11:30→19:39)
[2018-01-29] MEDS: ACETYLCYSTEINE 10% SOLN 400 MG/4 ML VIAL NEB SCH ×2 (11:30→14:54)
[2018-01-29] MEDS: MIRTAZAPINE 15 MG TABLET PO SCH (21:53)
[2018-01-29] MEDS: DONEPEZIL 5 MG TABLET PO SCH (21:53)
[2018-01-30] VITALS (56 sets, daily range): BP systolic 47–142; BP diastolic 15–84
[2018-01-30] MEDS: ACETYLCYSTEINE 10% SOLN 400 MG/4 ML VIAL NEB SCH ×4 (00:07→23:41)
[2018-01-30 04:49] LABS: CALCIUM, SERUM 7.9 mg/dL (8.5-10.1); CARBON DIOXIDE 22 mmol/L (21-32); CHLORIDE 109 mmol/L (98-107); CREATININE 0.9 mg/dL (0.6-1.3); GLUCOSE 149 mg/dL (74-106); POTASSIUM 4.1 mmol/L (3.5-5.1); SODIUM SERUM 141 mmol/L (136-145); UREA NITROGEN, BLOOD 25 mg/dL (7-18)
[2018-01-30] MEDS: JEVITY 1.2 CAL 1,000 ML BOTTLE GT PRN (06:30)
[2018-01-30] MEDS: IPRATROPIUM NEB FS 0.5 MG/2.5 ML AMPUL.NEB NEB SCH ×4 (07:41→19:36)
[2018-01-30 08:03] LABS: BASOPHILS # (AUTO) 0.5 /CMM (0.0-0.2); BASOPHILS % (AUTO) 2.2 % (0.0-2.0); HEMATOCRIT 34 % (39-51); HEMOGLOBIN 11.1 g/dL (13.5-17.5); LYMPHOCYTES # (AUTO) 0.8 /CMM (0.8-4.8); LYMPHOCYTES % (AUTO) 3.1 % (20.0-44.0); MEAN CORPUSCULAR HGB CONC 33 g/dl (31.0-36.0); MEAN CORPUSCULAR VOLUME 94 fL (80-96); MONOCYTES # (AUTO) 1.3 /CMM (0.1-1.30); MONOCYTES % (AUTO) 5.3 % (2.0-12.0); NEUTROPHILS # (AUTO) 22.1 /CMM (1.8-8.9); NEUTROPHILS % (AUTO) 89.4 % (43.0-81.0); PLATELET COUNT (AUTO) 218 /CMM (150-450); RDW COEFFICIENT OF VARIATION 16.5 (11.5-15.0); RED BLOOD CELL COUNT(AUTO) 3.57 MIL/uL (4.5-6.0); WHITE BLOOD COUNT (AUTO) 24.7 K/uL (4.3-11.0)
[2018-01-30] MEDS: FAMOTIDINE (20 MG) 20 MG TABLET PO SCH (09:20)
[2018-01-30] MEDS: DIVALPROEX SODIUM 125 MG CAP.SPRINK PO SCH ×2 (09:20→21:10)
[2018-01-30] MEDS: OLANZAPINE 2.5 MG TABLET GT SCH ×2 (09:20→17:20)
[2018-01-30] MEDS: HYDROCORTISONE SOD SUCCINATE 100 MG/2 ML VIAL IV SCH ×3 (09:20→17:20)
[2018-01-30] MEDS: DOCUSATE SODIUM LIQ 100 MG/10 ML UDC GT SCH ×2 (09:20→17:20)
[2018-01-30] MEDS: Z GUARD REMEDY 2 OZ OINT TP PRN (09:21)
[2018-01-30] MEDS: ASCORBIC ACID 500 MG TABLET PO SCH (09:21)
[2018-01-30] MEDS: LEVOTHYROXINE SODIUM 25 MCG TABLET PO SCH (09:21)
[2018-01-30] MEDS: LACTOBACILLUS RHAMNOSUS GG 1 EACH CAP.SPRINK GT SCH ×2 (09:21→17:20)
[2018-01-30] MEDS: MIDODRINE HCL (5MG) 5 MG TABLET PO SCH ×3 (09:21→17:20)
[2018-01-30 09:24] LABS: BAND % (MANUAL) 6 % (0.0-5.0); LYMPHOCYTES % (MANUAL) 3 % (16-48); MONOCYTES % (MANUAL) 4 % (0-11.0); NEUTROPHILS % (MANUAL) 87 (42-76)
[2018-01-30] MEDS: MIRTAZAPINE 15 MG TABLET PO SCH (21:10)
[2018-01-30] MEDS: DONEPEZIL 5 MG TABLET PO SCH (21:10)
[2018-01-31] VITALS (73 sets, daily range): BP systolic 70–128; BP diastolic 36–92
[2018-01-31 04:50] LABS: BASOPHILS # (AUTO) 0.1 /CMM (0.0-0.2); BASOPHILS % (AUTO) 0.3 % (0.0-2.0); HEMATOCRIT 34 % (39-51); HEMOGLOBIN 11.4 g/dL (13.5-17.5); LYMPHOCYTES # (AUTO) 0.5 /CMM (0.8-4.8); LYMPHOCYTES % (AUTO) 1.5 % (20.0-44.0); MEAN CORPUSCULAR HGB CONC 33 g/dl (31.0-36.0); MEAN CORPUSCULAR VOLUME 95 fL (80-96); MONOCYTES # (AUTO) 0.7 /CMM (0.1-1.30); NEUTROPHILS # (AUTO) 31.5 /CMM (1.8-8.9); NEUTROPHILS % (AUTO) 96.2 % (43.0-81.0); PLATELET COUNT (AUTO) 191 /CMM (150-450); RDW COEFFICIENT OF VARIATION 16.9 (11.5-15.0); RED BLOOD CELL COUNT(AUTO) 3.61 MIL/uL (4.5-6.0)
[2018-01-31 05:01] LABS: WHITE BLOOD COUNT (AUTO) 32.8 K/uL (4.3-11.0)
[2018-01-31 05:09] LABS: CALCIUM, SERUM 7.7 mg/dL (8.5-10.1); CARBON DIOXIDE 26 mmol/L (21-32); CHLORIDE 111 mmol/L (98-107); CREATININE 0.8 mg/dL (0.6-1.3); GLUCOSE 99 mg/dL (74-106); POTASSIUM 3.5 mmol/L (3.5-5.1); SODIUM SERUM 143 mmol/L (136-145); UREA NITROGEN, BLOOD 25 mg/dL (7-18)
[2018-01-31 05:29] LABS: BAND % (MANUAL) 18 % (0.0-5.0); EOSINOPHILS % (MANUAL) 1 % (0-4); LYMPHOCYTES % (MANUAL) 2 % (16-48); MONOCYTES % (MANUAL) 3 % (0-11.0); NEUTROPHILS % (MANUAL) 76 (42-76)
[2018-01-31] MEDS: JEVITY 1.2 CAL 1,000 ML BOTTLE GT PRN (08:12)
[2018-01-31] MEDS: IPRATROPIUM NEB FS 0.5 MG/2.5 ML AMPUL.NEB NEB SCH ×4 (08:13→19:49)
[2018-01-31] MEDS: DOCUSATE SODIUM LIQ 100 MG/10 ML UDC GT SCH ×2 (08:13→16:01)
[2018-01-31] MEDS: ACETYLCYSTEINE 10% SOLN 400 MG/4 ML VIAL NEB SCH ×2 (08:13→15:16)
[2018-01-31] MEDS: OLANZAPINE 2.5 MG TABLET GT SCH ×2 (08:16→16:01)
[2018-01-31] MEDS: MIDODRINE HCL (5MG) 5 MG TABLET PO SCH ×3 (08:16→16:01)
[2018-01-31] MEDS: LEVOTHYROXINE SODIUM 25 MCG TABLET PO SCH (08:16)
[2018-01-31] MEDS: HYDROCORTISONE SOD SUCCINATE 100 MG/2 ML VIAL IV SCH ×3 (08:16→16:01)
[2018-01-31] MEDS: LACTOBACILLUS RHAMNOSUS GG 1 EACH CAP.SPRINK GT SCH ×2 (08:16→16:01)
[2018-01-31] MEDS: DIVALPROEX SODIUM 125 MG CAP.SPRINK PO SCH ×2 (08:16→21:04)
[2018-01-31] MEDS: FAMOTIDINE (20 MG) 20 MG TABLET PO SCH (08:16)
[2018-01-31] MEDS: ASCORBIC ACID 500 MG TABLET PO SCH (08:16)
[2018-01-31] MEDS ORDERED: ACETYLCYSTEINE 10% SOLN 400 MG/4 ML VIAL NEB SCH (11:30)
[2018-01-31] MEDS: Z GUARD REMEDY 2 OZ OINT TP PRN ×2 (12:12→14:53)
[2018-01-31] MEDS: ALBUTEROL FS 2.5 MG/0.5 ML VIAL.NEB NEB SCH ×3 (12:27→19:49)
[2018-01-31] MEDS: IV NS 0.9% 250 ML IV PRN (14:53)
[2018-01-31] MEDS: ALBUMIN 25% 25 GM in PREMIX 1 EA IV SCH ×3 (19:04→23:06)
[2018-01-31] MEDS: MIRTAZAPINE 15 MG TABLET PO SCH (21:04)
[2018-01-31] MEDS: DONEPEZIL 5 MG TABLET PO SCH (21:04)
[2018-02-01] VITALS (85 sets, daily range): BP systolic 81–117; BP diastolic 49–88
[2018-02-01] MEDS: ALBUTEROL FS 2.5 MG/0.5 ML VIAL.NEB NEB SCH ×7 (00:05→23:23)
[2018-02-01] MEDS: ACETYLCYSTEINE 10% SOLN 400 MG/4 ML VIAL NEB SCH ×4 (00:06→23:24)
[2018-02-01] MEDS: ALBUMIN 25% 25 GM in PREMIX 1 EA IV SCH (01:09)
[2018-02-01 04:27] LABS: HEMATOCRIT 28 % (39-51); HEMOGLOBIN 9.1 g/dL (13.5-17.5); LYMPHOCYTES # (AUTO) 0.4 /CMM (0.8-4.8); LYMPHOCYTES % (AUTO) 1.4 % (20.0-44.0); MEAN CORPUSCULAR HGB CONC 33 g/dl (31.0-36.0); MEAN CORPUSCULAR VOLUME 96 fL (80-96); MONOCYTES # (AUTO) 0.3 /CMM (0.1-1.30); MONOCYTES % (AUTO) 1.2 % (2.0-12.0); NEUTROPHILS % (AUTO) 97.4 % (43.0-81.0); PLATELET COUNT (AUTO) 173 /CMM (150-450); RDW COEFFICIENT OF VARIATION 16.8 (11.5-15.0); RED BLOOD CELL COUNT(AUTO) 2.87 MIL/uL (4.5-6.0); WHITE BLOOD COUNT (AUTO) 25.6 K/uL (4.3-11.0)
[2018-02-01 04:52] LABS: CALCIUM, SERUM 8.3 mg/dL (8.5-10.1); CARBON DIOXIDE 25 mmol/L (21-32); CHLORIDE 109 mmol/L (98-107); CREATININE 0.9 mg/dL (0.6-1.3); GLUCOSE 93 mg/dL (74-106); MAGNESIUM 2.3 mg/dL (1.8-2.4); PHOSPHORUS 3.4 mg/dL (2.5-4.9); SODIUM SERUM 144 mmol/L (136-145); UREA NITROGEN, BLOOD 29 mg/dL (7-18)
[2018-02-01 05:02] LABS: BAND % (MANUAL) 2 % (0.0-5.0); LYMPHOCYTES % (MANUAL) 1 % (16-48); MONOCYTES % (MANUAL) 1 % (0-11.0); NEUTROPHILS % (MANUAL) 96 (42-76)
[2018-02-01] MEDS: IPRATROPIUM NEB FS 0.5 MG/2.5 ML AMPUL.NEB NEB SCH ×4 (07:32→19:42)
[2018-02-01] MEDS: Z GUARD REMEDY 2 OZ OINT TP PRN ×2 (07:37→12:40)
[2018-02-01] MEDS: JEVITY 1.2 CAL 1,000 ML BOTTLE GT PRN ×2 (07:37→23:29)
[2018-02-01] MEDS: HYDROCORTISONE SOD SUCCINATE 100 MG/2 ML VIAL IV SCH ×2 (08:03→16:02)
[2018-02-01] MEDS: LEVOTHYROXINE SODIUM 25 MCG TABLET PO SCH (08:03)
[2018-02-01] MEDS: DIVALPROEX SODIUM 125 MG CAP.SPRINK PO SCH ×2 (08:03→20:39)
[2018-02-01] MEDS: FAMOTIDINE (20 MG) 20 MG TABLET PO SCH (08:03)
[2018-02-01] MEDS: MIDODRINE HCL (5MG) 5 MG TABLET PO SCH ×3 (08:04→16:02)
[2018-02-01] MEDS: DOCUSATE SODIUM LIQ 100 MG/10 ML UDC GT SCH ×2 (08:04→16:01)
[2018-02-01] MEDS: ASCORBIC ACID 500 MG TABLET PO SCH (08:04)
[2018-02-01] MEDS: OLANZAPINE 2.5 MG TABLET GT SCH ×2 (08:04→16:02)
[2018-02-01] MEDS: LACTOBACILLUS RHAMNOSUS GG 1 EACH CAP.SPRINK GT SCH ×2 (08:04→16:02)
[2018-02-01 09:35] LABS: ABG OXYGEN SATURATION 84.3 % (92.0-98.5); ABG PCO2 35.7 mmHg (35.0-45.0); ABG PH 7.411 (7.350-7.450); ABG PO2 50.1 mmHg (75.0-100.0); AaDO2 56.9 mmHg; COHb 0.3 % (0.5-1.5); O2Hb 83.2 % (94.0-97.0); SITE, ABG Left Radial; VENT MODE, BG ROOM AIR 21%
[2018-02-01] MEDS: POTASSIUM CHLORIDE 20 MEQ POWDER PACKET GT SCH ×3 (10:11→12:40)
[2018-02-01] MEDS ORDERED: FUROSEMIDE 20 MG/2 ML VIAL IV ONE (11:00)
[2018-02-01] MEDS ORDERED: CEFTRIAXONE 1 G in IV D5W 50 ML IV SCH (15:00)
[2018-02-01] MEDS: IV NS 0.9% 250 ML IV PRN (15:51)
[2018-02-01] MEDS ORDERED: METRONIDAZOLE 500MG/ NS 100ML 500 MG in PREMIX 1 EA IV SCH (18:00)
[2018-02-01] MEDS: MIRTAZAPINE 15 MG TABLET PO SCH (21:02)
[2018-02-01] MEDS: DONEPEZIL 5 MG TABLET PO SCH (21:02)
[2018-02-01] MEDS: PIPERACILLIN /TAZOBACTAM 3.375 G in IV D5W 50 ML IV SCH (23:28)
[2018-02-02] VITALS (26 sets, daily range): BP systolic 76–177; BP diastolic 52–81
[2018-02-02] MEDS: ALBUTEROL FS 2.5 MG/0.5 ML VIAL.NEB NEB SCH ×6 (03:34→23:02)
[2018-02-02] MEDS: PIPERACILLIN /TAZOBACTAM 3.375 G in IV D5W 50 ML IV SCH ×4 (05:10→23:06)
[2018-02-02 06:50] LABS: BASOPHILS # (AUTO) 0.6 /CMM (0.0-0.2); BASOPHILS % (AUTO) 2.6 % (0.0-2.0); EOSINOPHILS % (AUTO) 0.2 % (0.0-6.0); HEMATOCRIT 30 % (39-51); HEMOGLOBIN 10.2 g/dL (13.5-17.5); LYMPHOCYTES # (AUTO) 0.7 /CMM (0.8-4.8); LYMPHOCYTES % (AUTO) 3.1 % (20.0-44.0); MEAN CORPUSCULAR HGB CONC 35 g/dl (31.0-36.0); MEAN CORPUSCULAR VOLUME 95 fL (80-96); MONOCYTES # (AUTO) 0.8 /CMM (0.1-1.30); MONOCYTES % (AUTO) 3.6 % (2.0-12.0); NEUTROPHILS # (AUTO) 19.2 /CMM (1.8-8.9); NEUTROPHILS % (AUTO) 90.5 % (43.0-81.0); PLATELET COUNT (AUTO) 168 /CMM (150-450); RED BLOOD CELL COUNT(AUTO) 3.11 MIL/uL (4.5-6.0); WHITE BLOOD COUNT (AUTO) 21.3 K/uL (4.3-11.0)
[2018-02-02 07:00] LABS: CALCIUM, SERUM 8.1 mg/dL (8.5-10.1); CARBON DIOXIDE 27 mmol/L (21-32); CHLORIDE 112 mmol/L (98-107); GLUCOSE 119 mg/dL (74-106); MAGNESIUM 2.3 mg/dL (1.8-2.4); POTASSIUM 3.5 mmol/L (3.5-5.1); SODIUM SERUM 147 mmol/L (136-145); UREA NITROGEN, BLOOD 34 mg/dL (7-18)
[2018-02-02] MEDS: IPRATROPIUM NEB FS 0.5 MG/2.5 ML AMPUL.NEB NEB SCH ×4 (08:38→19:05)
[2018-02-02] MEDS: ACETYLCYSTEINE 10% SOLN 400 MG/4 ML VIAL NEB SCH ×3 (08:38→23:02)
[2018-02-02] MEDS: OLANZAPINE 2.5 MG TABLET GT SCH ×2 (08:43→16:06)
[2018-02-02] MEDS: LACTOBACILLUS RHAMNOSUS GG 1 EACH CAP.SPRINK GT SCH ×2 (08:43→16:06)
[2018-02-02] MEDS: LEVOTHYROXINE SODIUM 25 MCG TABLET PO SCH (08:43)
[2018-02-02] MEDS: DOCUSATE SODIUM LIQ 100 MG/10 ML UDC GT SCH ×2 (08:43→16:05)
[2018-02-02] MEDS: DIVALPROEX SODIUM 125 MG CAP.SPRINK PO SCH ×2 (08:43→21:03)
[2018-02-02] MEDS: ASCORBIC ACID 500 MG TABLET PO SCH (08:44)
[2018-02-02] MEDS: FAMOTIDINE (20 MG) 20 MG TABLET PO SCH (08:44)
[2018-02-02] MEDS: MIDODRINE HCL (5MG) 5 MG TABLET PO SCH ×3 (08:44→16:07)
[2018-02-02] MEDS: HYDROCORTISONE SOD SUCCINATE 100 MG/2 ML VIAL IV SCH ×2 (08:44→16:06)
[2018-02-02 08:56] LABS: LYMPHOCYTES % (MANUAL) 4 % (16-48); MONOCYTES % (MANUAL) 4 % (0-11.0); NEUTROPHILS % (MANUAL) 92 (42-76)
[2018-02-02 09:57] LABS: ABG BASE EXCESS 0.6 mmol/L; ABG OXYGEN SATURATION 90.9 % (92.0-98.5); ABG PCO2 42.1 mmHg (35.0-45.0); ABG PO2 61.6 mmHg (75.0-100.0); AaDO2 233.1 mmHg; COHb 0.3 % (0.5-1.5); MetHb 0.7 % (0.0-1.5); SITE, ABG Left Radial; VENT MODE, BG SIMPLE MASK
[2018-02-02] MEDS ORDERED: VANCOMYCIN 1 GM in IV D5W 250 ML IV ONE (11:00)
[2018-02-02] MEDS ORDERED: FEE PK DOSING 1 MIN EA MC ONE (11:06)
[2018-02-02] MEDS ORDERED: NOREPINEPHRINE 8 MG in IV D5W 500 ML IV PRN (12:00)
[2018-02-02] MEDS ORDERED: PHENYLEPHRINE 20 MG in IV D5W 250 ML IV PRN (12:30)
[2018-02-02] MEDS: VANCOMYCIN 0.75 GM in IV D5W 250 ML IV SCH (13:14)
[2018-02-02 13:44] LABS: ALBUMIN 2.4 g/dL (3.4-5.0)
[2018-02-02 16:22] LABS: ABG BASE EXCESS -0.1 mmol/L; ABG OXYGEN SATURATION 95.6 % (92.0-98.5); ABG PCO2 41.5 mmHg (35.0-45.0); ABG PH 7.395 (7.350-7.450); ABG PO2 83.6 mmHg (75.0-100.0); AaDO2 240.7 mmHg; COHb 0.3 % (0.5-1.5); MetHb 0.6 % (0.0-1.5); O2Hb 94.7 % (94.0-97.0); SITE, ABG Left Radial; VENT MODE, BG 8L TX MASK
[2018-02-02] MEDS: MIRTAZAPINE 15 MG TABLET PO SCH (21:03)
[2018-02-02] MEDS: DONEPEZIL 5 MG TABLET PO SCH (21:03)
[2018-02-02] MEDS: methylPREDNISolone SOD SUCC 125 MG/2ML VIAL IV SCH (21:46)
[2018-02-03] VITALS (25 sets, daily range): BP systolic 82–105; BP diastolic 42–84
[2018-02-03] MEDS: JEVITY 1.2 CAL 1,000 ML BOTTLE GT PRN ×2 (02:31→16:30)
[2018-02-03] MEDS: ALBUTEROL FS 2.5 MG/0.5 ML VIAL.NEB NEB SCH ×6 (03:17→22:50)
[2018-02-03 04:58] LABS: HEMATOCRIT 30 % (39-51); LYMPHOCYTES # (AUTO) 0.3 /CMM (0.8-4.8); LYMPHOCYTES % (AUTO) 1.1 % (20.0-44.0); MEAN CORPUSCULAR HGB CONC 34 g/dl (31.0-36.0); MEAN CORPUSCULAR VOLUME 95 fL (80-96); MONOCYTES # (AUTO) 0.2 /CMM (0.1-1.30); NEUTROPHILS # (AUTO) 21.9 /CMM (1.8-8.9); NEUTROPHILS % (AUTO) 97.9 % (43.0-81.0); PLATELET COUNT (AUTO) 142 /CMM (150-450); RDW COEFFICIENT OF VARIATION 17.9 (11.5-15.0); RED BLOOD CELL COUNT(AUTO) 3.14 MIL/uL (4.5-6.0); WHITE BLOOD COUNT (AUTO) 22.4 K/uL (4.3-11.0)
[2018-02-03] MEDS: PIPERACILLIN /TAZOBACTAM 3.375 G in IV D5W 50 ML IV SCH ×4 (05:05→23:00)
[2018-02-03] MEDS: IV NS 0.9% 250 ML IV PRN (05:05)
[2018-02-03 05:23] LABS: BAND % (MANUAL) 3 % (0.0-5.0); LYMPHOCYTES % (MANUAL) 2 % (16-48); METAMYELOCYTES % 1 % (0-0); MONOCYTES % (MANUAL) 3 % (0-11.0); MYELOCYTES % 1 % (0-0); NEUTROPHILS % (MANUAL) 90 (42-76)
[2018-02-03 05:32] LABS: ALANINE AMINOTRANSFERASE 87 U/L (12-78); ALBUMIN 2.1 g/dL (3.4-5.0); ALKALINE PHOSPHATASE 75 U/L (46-116); ASPARTATE AMINOTRANSFERASE 74 U/L (15-37); CALCIUM, SERUM 8.4 mg/dL (8.5-10.1); CARBON DIOXIDE 29 mmol/L (21-32); CHLORIDE 112 mmol/L (98-107); GLUCOSE 164 mg/dL (74-106); MAGNESIUM 2.2 mg/dL (1.8-2.4); PHOSPHORUS 2.5 mg/dL (2.5-4.9); POTASSIUM 3.6 mmol/L (3.5-5.1); SODIUM SERUM 147 mmol/L (136-145); TOTAL PROTEIN, SERUM 5.4 g/dL (6.4-8.2); UREA NITROGEN, BLOOD 28 mg/dL (7-18)
[2018-02-03] MEDS: IPRATROPIUM NEB FS 0.5 MG/2.5 ML AMPUL.NEB NEB SCH ×4 (08:14→20:03)
[2018-02-03] MEDS: ACETYLCYSTEINE 10% SOLN 400 MG/4 ML VIAL NEB SCH ×3 (08:14→22:50)
[2018-02-03] MEDS ORDERED: PHENYLEPHRINE 20 MG in IV D5W 250 ML IV PRN (09:00)
[2018-02-03] MEDS: OLANZAPINE 2.5 MG TABLET GT SCH ×2 (09:00→16:07)
[2018-02-03] MEDS: MIDODRINE HCL (5MG) 5 MG TABLET PO SCH ×3 (09:02→16:10)
[2018-02-03] MEDS: FAMOTIDINE (20 MG) 20 MG TABLET PO SCH (09:02)
[2018-02-03] MEDS: DOCUSATE SODIUM LIQ 100 MG/10 ML UDC GT SCH ×2 (09:02→16:10)
[2018-02-03] MEDS: LACTOBACILLUS RHAMNOSUS GG 1 EACH CAP.SPRINK GT SCH ×2 (09:02→16:10)
[2018-02-03] MEDS: LEVOTHYROXINE SODIUM 25 MCG TABLET PO SCH (09:02)
[2018-02-03] MEDS: ASCORBIC ACID 500 MG TABLET PO SCH (09:02)
[2018-02-03] MEDS: methylPREDNISolone SOD SUCC 125 MG/2ML VIAL IV SCH ×2 (09:02→12:25)
[2018-02-03] MEDS: FUROSEMIDE 40 MG/4 ML VIAL IV SCH ×2 (09:07→13:46)
[2018-02-03] MEDS: DIVALPROEX SODIUM 125 MG CAP.SPRINK PO SCH ×2 (11:02→21:23)
[2018-02-03] MEDS: VANCOMYCIN 0.75 GM in IV D5W 250 ML IV SCH (11:03)
[2018-02-03] MEDS ORDERED: ALBUMIN 25% 12.5 GM/50 ML BOTTLE IV ONE (12:00)
[2018-02-03] MEDS: DONEPEZIL 5 MG TABLET PO SCH (21:23)
[2018-02-03] MEDS: MIRTAZAPINE 15 MG TABLET PO SCH (21:23)
[2018-02-04] VITALS (39 sets, daily range): BP systolic 71–115; BP diastolic 41–77
[2018-02-04] MEDS: ALBUTEROL FS 2.5 MG/0.5 ML VIAL.NEB NEB SCH ×6 (03:26→22:54)
[2018-02-04 04:44] LABS: BASOPHILS # (AUTO) 0.1 /CMM (0.0-0.2); BASOPHILS % (AUTO) 0.5 % (0.0-2.0); HEMATOCRIT 29 % (39-51); HEMOGLOBIN 9.8 g/dL (13.5-17.5); LYMPHOCYTES # (AUTO) 0.5 /CMM (0.8-4.8); LYMPHOCYTES % (AUTO) 2.4 % (20.0-44.0); MEAN CORPUSCULAR HGB CONC 33 g/dl (31.0-36.0); MEAN CORPUSCULAR VOLUME 95 fL (80-96); MONOCYTES # (AUTO) 0.6 /CMM (0.1-1.30); MONOCYTES % (AUTO) 2.6 % (2.0-12.0); NEUTROPHILS # (AUTO) 20.7 /CMM (1.8-8.9); NEUTROPHILS % (AUTO) 94.5 % (43.0-81.0); PLATELET COUNT (AUTO) 140 /CMM (150-450); RDW COEFFICIENT OF VARIATION 18.5 (11.5-15.0); WHITE BLOOD COUNT (AUTO) 21.9 K/uL (4.3-11.0)
[2018-02-04 05:03] LABS: ALANINE AMINOTRANSFERASE 65 U/L (12-78); ALBUMIN 2.1 g/dL (3.4-5.0); ALKALINE PHOSPHATASE 74 U/L (46-116); ASPARTATE AMINOTRANSFERASE 43 U/L (15-37); CALCIUM, SERUM 8.2 mg/dL (8.5-10.1); CARBON DIOXIDE 36 mmol/L (21-32); CHLORIDE 109 mmol/L (98-107); CREATININE 1.2 mg/dL (0.6-1.3); GLUCOSE 127 mg/dL (74-106); MAGNESIUM 1.8 mg/dL (1.8-2.4); PHOSPHORUS 2.5 mg/dL (2.5-4.9); SODIUM SERUM 151 mmol/L (136-145); TOTAL PROTEIN, SERUM 5.4 g/dL (6.4-8.2); UREA NITROGEN, BLOOD 33 mg/dL (7-18)
[2018-02-04 05:26] LABS: POTASSIUM 2.6 mmol/L (3.5-5.1)
[2018-02-04] MEDS: PIPERACILLIN /TAZOBACTAM 3.375 G in IV D5W 50 ML IV SCH ×4 (05:46→23:39)
[2018-02-04] MEDS: POTASSIUM CL. PREMIX PERIPHER. 50 ML IV SCH ×4 (05:46→09:38)
[2018-02-04] MEDS: ACETAMINOPHEN 325 MG TABLET PO PRN (05:47)
[2018-02-04] MEDS ORDERED: POTASSIUM CHLORIDE 20 MEQ POWDER PACKET NG SCH (06:00)
[2018-02-04] MEDS ORDERED: POTASSIUM CHLORIDE 20 MEQ POWDER PACKET NG ONE (06:00)
[2018-02-04] MEDS: IPRATROPIUM NEB FS 0.5 MG/2.5 ML AMPUL.NEB NEB SCH ×4 (07:43→20:24)
[2018-02-04] MEDS: ACETYLCYSTEINE 10% SOLN 400 MG/4 ML VIAL NEB SCH ×3 (07:43→22:53)
[2018-02-04] MEDS: MIDODRINE HCL (5MG) 5 MG TABLET PO SCH ×3 (08:24→16:19)
[2018-02-04] MEDS: LEVOTHYROXINE SODIUM 25 MCG TABLET PO SCH (08:24)
[2018-02-04] MEDS: FAMOTIDINE (20 MG) 20 MG TABLET PO SCH (08:24)
[2018-02-04] MEDS: POTASSIUM CHLORIDE 20 MEQ POWDER PACKET NG SCH ×2 (08:24→09:00)
[2018-02-04] MEDS: ASCORBIC ACID 500 MG TABLET PO SCH (08:24)
[2018-02-04] MEDS: OLANZAPINE 2.5 MG TABLET GT SCH ×2 (08:24→16:19)
[2018-02-04] MEDS: DOCUSATE SODIUM LIQ 100 MG/10 ML UDC GT SCH ×2 (08:25→16:19)
[2018-02-04] MEDS: DIVALPROEX SODIUM 125 MG CAP.SPRINK PO SCH ×2 (08:25→21:27)
[2018-02-04] MEDS: LACTOBACILLUS RHAMNOSUS GG 1 EACH CAP.SPRINK GT SCH ×2 (08:25→16:19)
[2018-02-04] MEDS: methylPREDNISolone SOD SUCC 40 MG/ML VIAL IV SCH (08:25)
[2018-02-04] MEDS ORDERED: DOBUTamine 500 MG in IV NS 0.9% 210 ML IV PRN (11:30)
[2018-02-04] MEDS: JEVITY 1.2 CAL 1,000 ML BOTTLE GT PRN (12:45)
[2018-02-04] MEDS: VANCOMYCIN 0.75 GM in IV D5W 250 ML IV SCH (12:45)
[2018-02-04] MEDS: IV D5/0.45 NACL 1,000 ML IV PRN ×2 (12:49→23:39)
[2018-02-04] MEDS: DONEPEZIL 5 MG TABLET PO SCH (21:27)
[2018-02-04] MEDS: MIRTAZAPINE 15 MG TABLET PO SCH (21:28)
[2018-02-05] VITALS (75 sets, daily range): BP systolic 47–115; BP diastolic 20–72
[2018-02-05] MEDS: ALBUTEROL FS 2.5 MG/0.5 ML VIAL.NEB NEB SCH ×6 (02:49→23:51)
[2018-02-05 04:47] LABS: EOSINOPHILS % (AUTO) 0.1 % (0.0-6.0); HEMATOCRIT 30 % (39-51); HEMOGLOBIN 9.9 g/dL (13.5-17.5); LYMPHOCYTES # (AUTO) 0.7 /CMM (0.8-4.8); MEAN CORPUSCULAR HGB CONC 33 g/dl (31.0-36.0); MEAN CORPUSCULAR VOLUME 96 fL (80-96); MONOCYTES # (AUTO) 0.4 /CMM (0.1-1.30); MONOCYTES % (AUTO) 1.6 % (2.0-12.0); NEUTROPHILS % (AUTO) 95.3 % (43.0-81.0); PLATELET COUNT (AUTO) 124 /CMM (150-450); RDW COEFFICIENT OF VARIATION 18.1 (11.5-15.0); RED BLOOD CELL COUNT(AUTO) 3.11 MIL/uL (4.5-6.0); WHITE BLOOD COUNT (AUTO) 24.2 K/uL (4.3-11.0)
[2018-02-05 05:24] LABS: LYMPHOCYTES % (MANUAL) 3 % (16-48)
[2018-02-05 05:25] LABS: MONOCYTES % (MANUAL) 2 % (0-11.0); NEUTROPHILS % (MANUAL) 95 (42-76)
[2018-02-05 05:27] LABS: ALANINE AMINOTRANSFERASE 49 U/L (12-78); ALBUMIN 1.8 g/dL (3.4-5.0); ALKALINE PHOSPHATASE 64 U/L (46-116); ASPARTATE AMINOTRANSFERASE 32 U/L (15-37); BILIRUBIN,TOTAL 0.9 mg/dL (0.2-1.0); CALCIUM, SERUM 8.2 mg/dL (8.5-10.1); CARBON DIOXIDE 34 mmol/L (21-32); CHLORIDE 110 mmol/L (98-107); GLUCOSE 89 mg/dL (74-106); MAGNESIUM 2.1 mg/dL (1.8-2.4); PHOSPHORUS 2.5 mg/dL (2.5-4.9); SODIUM SERUM 148 mmol/L (136-145); UREA NITROGEN, BLOOD 30 mg/dL (7-18)
[2018-02-05] MEDS: JEVITY 1.2 CAL 1,000 ML BOTTLE GT PRN (05:33)
[2018-02-05] MEDS: PIPERACILLIN /TAZOBACTAM 3.375 G in IV D5W 50 ML IV SCH ×4 (05:33→23:43)
[2018-02-05] MEDS: ACETYLCYSTEINE 10% SOLN 400 MG/4 ML VIAL NEB SCH ×3 (07:35→23:51)
[2018-02-05] MEDS: IPRATROPIUM NEB FS 0.5 MG/2.5 ML AMPUL.NEB NEB SCH ×4 (07:42→20:17)
[2018-02-05] MEDS: DIVALPROEX SODIUM 125 MG CAP.SPRINK PO SCH ×2 (08:41→21:02)
[2018-02-05] MEDS: methylPREDNISolone SOD SUCC 40 MG/ML VIAL IV SCH (08:41)
[2018-02-05] MEDS: ASCORBIC ACID 500 MG TABLET PO SCH (08:41)
[2018-02-05] MEDS: LACTOBACILLUS RHAMNOSUS GG 1 EACH CAP.SPRINK GT SCH ×2 (08:41→17:45)
[2018-02-05] MEDS: OLANZAPINE 2.5 MG TABLET GT SCH ×2 (08:41→17:45)
[2018-02-05] MEDS: FAMOTIDINE (20 MG) 20 MG TABLET PO SCH (08:41)
[2018-02-05] MEDS: MIDODRINE HCL (5MG) 5 MG TABLET PO SCH ×3 (08:41→17:46)
[2018-02-05] MEDS: LEVOTHYROXINE SODIUM 25 MCG TABLET PO SCH (08:41)
[2018-02-05] MEDS: DOCUSATE SODIUM LIQ 100 MG/10 ML UDC GT SCH ×2 (08:41→17:00)
[2018-02-05] MEDS: Z GUARD REMEDY 2 OZ OINT TP PRN (08:42)
[2018-02-05] MEDS: IV D5/0.45 NACL 1,000 ML IV PRN ×2 (09:48→21:36)
[2018-02-05] MEDS: VANCOMYCIN 0.75 GM in IV D5W 250 ML IV SCH (11:38)
[2018-02-05] MEDS: NOREPINEPHRINE 8 MG in IV D5W 500 ML IV PRN ×2 (12:04→12:42)
[2018-02-05] MEDS ORDERED: MIDODRINE HCL (5MG) 5 MG TABLET PO SCH (13:30)
[2018-02-05] MEDS: DONEPEZIL 5 MG TABLET PO SCH (21:02)
[2018-02-05] MEDS: MIRTAZAPINE 15 MG TABLET PO SCH (21:04)
[2018-02-06] VITALS (88 sets, daily range): BP systolic 81–124; BP diastolic 42–85
[2018-02-06] MEDS: JEVITY 1.2 CAL 1,000 ML BOTTLE GT PRN ×2 (01:20→23:51)
[2018-02-06] MEDS: ALBUTEROL FS 2.5 MG/0.5 ML VIAL.NEB NEB SCH ×6 (03:30→23:12)
[2018-02-06 04:44] LABS: BASOPHILS # (AUTO) 0.1 /CMM (0.0-0.2); BASOPHILS % (AUTO) 0.3 % (0.0-2.0); EOSINOPHILS % (AUTO) 0.5 % (0.0-6.0); HEMATOCRIT 32 % (39-51); HEMOGLOBIN 10.5 g/dL (13.5-17.5); LYMPHOCYTES # (AUTO) 0.7 /CMM (0.8-4.8); LYMPHOCYTES % (AUTO) 2.3 % (20.0-44.0); MEAN CORPUSCULAR HGB CONC 33 g/dl (31.0-36.0); MEAN CORPUSCULAR VOLUME 96 fL (80-96); MONOCYTES # (AUTO) 0.9 /CMM (0.1-1.30); MONOCYTES % (AUTO) 3.3 % (2.0-12.0); NEUTROPHILS # (AUTO) 26.4 /CMM (1.8-8.9); NEUTROPHILS % (AUTO) 93.6 % (43.0-81.0); PLATELET COUNT (AUTO) 133 /CMM (150-450); RDW COEFFICIENT OF VARIATION 18.5 (11.5-15.0); WHITE BLOOD COUNT (AUTO) 28.2 K/uL (4.3-11.0)
[2018-02-06 05:02] LABS: CALCIUM, SERUM 7.7 mg/dL (8.5-10.1); CARBON DIOXIDE 34 mmol/L (21-32); CHLORIDE 107 mmol/L (98-107); CREATININE 0.9 mg/dL (0.6-1.3); GLUCOSE 140 mg/dL (74-106); MAGNESIUM 1.9 mg/dL (1.8-2.4); PHOSPHORUS 2.5 mg/dL (2.5-4.9); POTASSIUM 4.3 mmol/L (3.5-5.1); SODIUM SERUM 144 mmol/L (136-145); UREA NITROGEN, BLOOD 26 mg/dL (7-18)
[2018-02-06 05:08] LABS: BAND % (MANUAL) 2 % (0.0-5.0); LYMPHOCYTES % (MANUAL) 4 % (16-48)
[2018-02-06 05:09] LABS: MONOCYTES % (MANUAL) 5 % (0-11.0); NEUTROPHILS % (MANUAL) 89 (42-76)
[2018-02-06] MEDS: PIPERACILLIN /TAZOBACTAM 3.375 G in IV D5W 50 ML IV SCH ×3 (06:09→17:03)
[2018-02-06] MEDS: IV D5/0.45 NACL 1,000 ML IV PRN ×2 (06:19→17:10)
[2018-02-06] MEDS: ACETYLCYSTEINE 10% SOLN 400 MG/4 ML VIAL NEB SCH ×3 (07:35→23:12)
[2018-02-06] MEDS: IPRATROPIUM NEB FS 0.5 MG/2.5 ML AMPUL.NEB NEB SCH ×4 (07:38→19:31)
[2018-02-06] MEDS: MIDODRINE HCL (5MG) 5 MG TABLET PO SCH ×3 (09:14→16:57)
[2018-02-06] MEDS: DOCUSATE SODIUM LIQ 100 MG/10 ML UDC GT SCH ×2 (09:14→16:48)
[2018-02-06] MEDS: methylPREDNISolone SOD SUCC 40 MG/ML VIAL IV SCH (09:14)
[2018-02-06] MEDS: LEVOTHYROXINE SODIUM 25 MCG TABLET PO SCH (09:14)
[2018-02-06] MEDS: DIVALPROEX SODIUM 125 MG CAP.SPRINK PO SCH ×2 (09:14→21:15)
[2018-02-06] MEDS: OLANZAPINE 2.5 MG TABLET GT SCH ×2 (09:14→16:48)
[2018-02-06] MEDS: FAMOTIDINE (20 MG) 20 MG TABLET PO SCH (09:14)
[2018-02-06] MEDS: ASCORBIC ACID 500 MG TABLET PO SCH (09:14)
[2018-02-06] MEDS: LACTOBACILLUS RHAMNOSUS GG 1 EACH CAP.SPRINK GT SCH ×2 (09:14→16:48)
[2018-02-06] MEDS: VANCOMYCIN 0.75 GM in IV D5W 250 ML IV SCH (12:22)
[2018-02-06] MEDS: MIRTAZAPINE 15 MG TABLET PO SCH (21:15)
[2018-02-06] MEDS: DONEPEZIL 5 MG TABLET PO SCH (21:15)
[2018-02-07] VITALS (45 sets, daily range): BP systolic 76–112; BP diastolic 43–66
[2018-02-07] MEDS: PIPERACILLIN /TAZOBACTAM 3.375 G in IV D5W 50 ML IV SCH ×5 (00:05→23:38)
[2018-02-07] MEDS: ALBUTEROL FS 2.5 MG/0.5 ML VIAL.NEB NEB SCH ×6 (03:07→23:27)
[2018-02-07] MEDS: IV D5/0.45 NACL 1,000 ML IV PRN (04:07)
[2018-02-07 05:10] LABS: EOSINOPHILS % (AUTO) 0.8 % (0.0-6.0); HEMATOCRIT 31 % (39-51); HEMOGLOBIN 10.2 g/dL (13.5-17.5); LYMPHOCYTES # (AUTO) 0.6 /CMM (0.8-4.8); LYMPHOCYTES % (AUTO) 3.1 % (20.0-44.0); MEAN CORPUSCULAR HGB CONC 33 g/dl (31.0-36.0); MEAN CORPUSCULAR VOLUME 96 fL (80-96); MONOCYTES # (AUTO) 0.5 /CMM (0.1-1.30); MONOCYTES % (AUTO) 2.9 % (2.0-12.0); NEUTROPHILS # (AUTO) 17.1 /CMM (1.8-8.9); NEUTROPHILS % (AUTO) 93.2 % (43.0-81.0); PLATELET COUNT (AUTO) 105 /CMM (150-450); RDW COEFFICIENT OF VARIATION 18.4 (11.5-15.0); RED BLOOD CELL COUNT(AUTO) 3.23 MIL/uL (4.5-6.0); WHITE BLOOD COUNT (AUTO) 18.4 K/uL (4.3-11.0)
[2018-02-07 05:43] LABS: CALCIUM, SERUM 7.8 mg/dL (8.5-10.1); CARBON DIOXIDE 31 mmol/L (21-32); CHLORIDE 105 mmol/L (98-107); CREATININE 0.8 mg/dL (0.6-1.3); GLUCOSE 124 mg/dL (74-106); MAGNESIUM 1.9 mg/dL (1.8-2.4); PHOSPHORUS 2.9 mg/dL (2.5-4.9); POTASSIUM 4.5 mmol/L (3.5-5.1); SODIUM SERUM 140 mmol/L (136-145); UREA NITROGEN, BLOOD 23 mg/dL (7-18)
[2018-02-07] MEDS: ACETYLCYSTEINE 10% SOLN 400 MG/4 ML VIAL NEB SCH ×3 (07:39→23:27)
[2018-02-07] MEDS: IPRATROPIUM NEB FS 0.5 MG/2.5 ML AMPUL.NEB NEB SCH ×4 (07:40→19:51)
[2018-02-07] MEDS: DOCUSATE SODIUM LIQ 100 MG/10 ML UDC GT SCH (08:34)
[2018-02-07] MEDS: DIVALPROEX SODIUM 125 MG CAP.SPRINK PO SCH ×2 (08:34→21:07)
[2018-02-07] MEDS: LACTOBACILLUS RHAMNOSUS GG 1 EACH CAP.SPRINK GT SCH ×2 (08:35→17:41)
[2018-02-07] MEDS: LEVOTHYROXINE SODIUM 25 MCG TABLET PO SCH (08:35)
[2018-02-07] MEDS: OLANZAPINE 2.5 MG TABLET GT SCH ×2 (08:35→17:41)
[2018-02-07] MEDS: FAMOTIDINE (20 MG) 20 MG TABLET PO SCH (08:35)
[2018-02-07] MEDS: MIDODRINE HCL (5MG) 5 MG TABLET PO SCH ×3 (08:35→17:41)
[2018-02-07] MEDS: ASCORBIC ACID 500 MG TABLET PO SCH (08:35)
[2018-02-07] MEDS: methylPREDNISolone SOD SUCC 40 MG/ML VIAL IV SCH (08:37)
[2018-02-07] MEDS: HYDROCORTISONE SOD SUCCINATE 100 MG/2 ML VIAL IV SCH ×3 (10:46→17:41)
[2018-02-07] MEDS: VANCOMYCIN 0.75 GM in IV D5W 250 ML IV SCH (12:19)
[2018-02-07] MEDS: IV NS 0.9% 250 ML IV PRN (20:41)
[2018-02-07] MEDS: DONEPEZIL 5 MG TABLET PO SCH (21:07)
[2018-02-07] MEDS: MIRTAZAPINE 15 MG TABLET PO SCH (21:08)
[2018-02-07] MEDS: JEVITY 1.2 CAL 1,000 ML BOTTLE GT PRN (23:38)
[2018-02-08] VITALS: BP 110/62
[2018-02-08] MEDS: ALBUTEROL FS 2.5 MG/0.5 ML VIAL.NEB NEB SCH ×6 (03:21→23:28)
[2018-02-08 04:00] VITALS: BP 120/69
[2018-02-08] MEDS: PIPERACILLIN /TAZOBACTAM 3.375 G in IV D5W 50 ML IV SCH ×3 (05:28→17:02)
[2018-02-08 06:37] LABS: EOSINOPHILS % (AUTO) 0.1 % (0.0-6.0); HEMATOCRIT 31 % (39-51); HEMOGLOBIN 10.3 g/dL (13.5-17.5); LYMPHOCYTES # (AUTO) 0.3 /CMM (0.8-4.8); LYMPHOCYTES % (AUTO) 1.6 % (20.0-44.0); MEAN CORPUSCULAR HGB CONC 33 g/dl (31.0-36.0); MEAN CORPUSCULAR VOLUME 97 fL (80-96); MONOCYTES # (AUTO) 0.6 /CMM (0.1-1.30); MONOCYTES % (AUTO) 3.2 % (2.0-12.0); NEUTROPHILS # (AUTO) 18.1 /CMM (1.8-8.9); NEUTROPHILS % (AUTO) 95.1 % (43.0-81.0); PLATELET COUNT (AUTO) 117 /CMM (150-450); RDW COEFFICIENT OF VARIATION 17.5 (11.5-15.0); RED BLOOD CELL COUNT(AUTO) 3.24 MIL/uL (4.5-6.0)
[2018-02-08 07:11] LABS: CALCIUM, SERUM 7.9 mg/dL (8.5-10.1); CARBON DIOXIDE 33 mmol/L (21-32); CHLORIDE 105 mmol/L (98-107); GLUCOSE 126 mg/dL (74-106); MAGNESIUM 2.2 mg/dL (1.8-2.4); POTASSIUM 4.5 mmol/L (3.5-5.1); SODIUM SERUM 142 mmol/L (136-145); UREA NITROGEN, BLOOD 25 mg/dL (7-18)
[2018-02-08 08:00] VITALS: BP 116/72
[2018-02-08] MEDS: ACETYLCYSTEINE 10% SOLN 400 MG/4 ML VIAL NEB SCH ×3 (08:13→23:28)
[2018-02-08] MEDS: IPRATROPIUM NEB FS 0.5 MG/2.5 ML AMPUL.NEB NEB SCH ×4 (08:13→19:30)
[2018-02-08] MEDS: HYDROCORTISONE SOD SUCCINATE 100 MG/2 ML VIAL IV SCH ×3 (08:24→16:15)
[2018-02-08] MEDS: methylPREDNISolone SOD SUCC 40 MG/ML VIAL IV SCH (08:24)
[2018-02-08] MEDS: LACTOBACILLUS RHAMNOSUS GG 1 EACH CAP.SPRINK GT SCH ×2 (08:24→16:15)
[2018-02-08] MEDS: FAMOTIDINE (20 MG) 20 MG TABLET PO SCH (08:25)
[2018-02-08] MEDS: MIDODRINE HCL (5MG) 5 MG TABLET PO SCH ×3 (08:25→17:02)
[2018-02-08] MEDS: ASCORBIC ACID 500 MG TABLET PO SCH (08:25)
[2018-02-08] MEDS: OLANZAPINE 2.5 MG TABLET GT SCH ×2 (08:25→16:15)
[2018-02-08] MEDS: DIVALPROEX SODIUM 125 MG CAP.SPRINK PO SCH ×2 (08:25→22:05)
[2018-02-08] MEDS: LEVOTHYROXINE SODIUM 25 MCG TABLET PO SCH (08:25)
[2018-02-08] MEDS: VANCOMYCIN 0.75 GM in IV D5W 250 ML IV SCH (11:45)
[2018-02-08 12:00] VITALS: BP 108/73
[2018-02-08] MEDS: ACETAMINOPHEN 325 MG TABLET PO PRN (12:08)
[2018-02-08 16:00] VITALS: BP 139/64
[2018-02-08] MEDS: JEVITY 1.2 CAL 1,000 ML BOTTLE GT PRN (19:13)
[2018-02-08 20:00] VITALS: BP 136/52
[2018-02-08] MEDS: MIRTAZAPINE 15 MG TABLET PO SCH (22:05)
[2018-02-08] MEDS: DONEPEZIL 5 MG TABLET PO SCH (22:05)
[2018-02-09] MEDS: PIPERACILLIN /TAZOBACTAM 3.375 G in IV D5W 50 ML IV SCH ×5 (00:12→23:17)
[2018-02-09] MEDS: ALBUTEROL FS 2.5 MG/0.5 ML VIAL.NEB NEB SCH ×6 (03:51→23:37)
[2018-02-09 06:47] LABS: CARBON DIOXIDE 32 mmol/L (21-32); CHLORIDE 104 mmol/L (98-107); CREATININE 0.9 mg/dL (0.6-1.3); GLUCOSE 128 mg/dL (74-106); POTASSIUM 4.1 mmol/L (3.5-5.1); SODIUM SERUM 141 mmol/L (136-145); UREA NITROGEN, BLOOD 27 mg/dL (7-18)
[2018-02-09] MEDS: ACETYLCYSTEINE 10% SOLN 400 MG/4 ML VIAL NEB SCH ×3 (07:26→23:37)
[2018-02-09] MEDS: IPRATROPIUM NEB FS 0.5 MG/2.5 ML AMPUL.NEB NEB SCH ×4 (07:26→19:56)
[2018-02-09 08:00] VITALS: BP 142/78
[2018-02-09] MEDS: FAMOTIDINE (20 MG) 20 MG TABLET PO SCH (09:51)
[2018-02-09] MEDS: methylPREDNISolone SOD SUCC 40 MG/ML VIAL IV SCH (09:51)
[2018-02-09] MEDS: LACTOBACILLUS RHAMNOSUS GG 1 EACH CAP.SPRINK GT SCH ×2 (09:51→17:32)
[2018-02-09] MEDS: DIVALPROEX SODIUM 125 MG CAP.SPRINK PO SCH ×2 (09:51→21:15)
[2018-02-09] MEDS: HYDROCORTISONE SOD SUCCINATE 100 MG/2 ML VIAL IV SCH ×3 (09:51→17:32)
[2018-02-09] MEDS: ASCORBIC ACID 500 MG TABLET PO SCH (09:51)
[2018-02-09] MEDS: LEVOTHYROXINE SODIUM 25 MCG TABLET PO SCH (09:52)
[2018-02-09] MEDS: MIDODRINE HCL (5MG) 5 MG TABLET PO SCH ×3 (09:52→17:32)
[2018-02-09] MEDS: OLANZAPINE 2.5 MG TABLET GT SCH ×2 (09:52→17:32)
[2018-02-09 11:34] LABS: CALCIUM, SERUM 8.2 mg/dL (8.5-10.1); CARBON DIOXIDE 35 mmol/L (21-32); CHLORIDE 105 mmol/L (98-107); CREATININE 0.9 mg/dL (0.6-1.3); GLUCOSE 99 mg/dL (74-106); SODIUM SERUM 142 mmol/L (136-145); UREA NITROGEN, BLOOD 28 mg/dL (7-18)
[2018-02-09 11:38] LABS: HEMATOCRIT 30 % (39-51); LYMPHOCYTES # (AUTO) 0.6 /CMM (0.8-4.8); LYMPHOCYTES % (AUTO) 3.1 % (20.0-44.0); MEAN CORPUSCULAR HGB CONC 34 g/dl (31.0-36.0); MEAN CORPUSCULAR VOLUME 96 fL (80-96); MONOCYTES # (AUTO) 1.3 /CMM (0.1-1.30); MONOCYTES % (AUTO) 6.7 % (2.0-12.0); NEUTROPHILS # (AUTO) 17.3 /CMM (1.8-8.9); NEUTROPHILS % (AUTO) 90.2 % (43.0-81.0); PLATELET COUNT (AUTO) 119 /CMM (150-450); RDW COEFFICIENT OF VARIATION 17.6 (11.5-15.0); RED BLOOD CELL COUNT(AUTO) 3.12 MIL/uL (4.5-6.0); WHITE BLOOD COUNT (AUTO) 19.1 K/uL (4.3-11.0)
[2018-02-09 12:00] VITALS: BP 119/71
[2018-02-09] MEDS: VANCOMYCIN 0.75 GM in IV D5W 250 ML IV SCH (13:42)
[2018-02-09 16:00] VITALS: BP 118/64
[2018-02-09] MEDS: JEVITY 1.2 CAL 1,000 ML BOTTLE GT PRN (17:32)
[2018-02-09 20:00] VITALS: BP 119/65
[2018-02-09] MEDS: DONEPEZIL 5 MG TABLET PO SCH (21:15)
[2018-02-09] MEDS: MIRTAZAPINE 15 MG TABLET PO SCH (21:15)
[2018-02-10] MEDS: ALBUTEROL FS 2.5 MG/0.5 ML VIAL.NEB NEB SCH ×6 (03:54→23:48)
[2018-02-10 04:00] VITALS: BP 115/71
[2018-02-10] MEDS: PIPERACILLIN /TAZOBACTAM 3.375 G in IV D5W 50 ML IV SCH ×4 (05:25→23:14)
[2018-02-10 07:04] LABS: CALCIUM, SERUM 8.2 mg/dL (8.5-10.1); CARBON DIOXIDE 35 mmol/L (21-32); CHLORIDE 104 mmol/L (98-107); CREATININE 0.9 mg/dL (0.6-1.3); GLUCOSE 132 mg/dL (74-106); POTASSIUM 4.3 mmol/L (3.5-5.1); SODIUM SERUM 142 mmol/L (136-145); UREA NITROGEN, BLOOD 28 mg/dL (7-18)
[2018-02-10] MEDS: ACETYLCYSTEINE 10% SOLN 400 MG/4 ML VIAL NEB SCH ×3 (07:57→23:48)
[2018-02-10] MEDS: IPRATROPIUM NEB FS 0.5 MG/2.5 ML AMPUL.NEB NEB SCH ×4 (07:57→19:48)
[2018-02-10 08:00] VITALS: BP 125/80
[2018-02-10] MEDS: FAMOTIDINE (20 MG) 20 MG TABLET PO SCH (08:28)
[2018-02-10] MEDS: OLANZAPINE 2.5 MG TABLET GT SCH ×2 (08:28→17:41)
[2018-02-10] MEDS: MIDODRINE HCL (5MG) 5 MG TABLET PO SCH ×3 (08:29→17:41)
[2018-02-10] MEDS: DIVALPROEX SODIUM 125 MG CAP.SPRINK PO SCH ×2 (08:29→21:15)
[2018-02-10] MEDS: ASCORBIC ACID 500 MG TABLET PO SCH (08:29)
[2018-02-10] MEDS: LEVOTHYROXINE SODIUM 25 MCG TABLET PO SCH (08:29)
[2018-02-10] MEDS: LACTOBACILLUS RHAMNOSUS GG 1 EACH CAP.SPRINK GT SCH ×2 (08:29→17:41)
[2018-02-10] MEDS: HYDROCORTISONE SOD SUCCINATE 100 MG/2 ML VIAL IV SCH ×3 (08:45→17:45)
[2018-02-10] MEDS: methylPREDNISolone SOD SUCC 40 MG/ML VIAL IV SCH (08:48)
[2018-02-10] MEDS: VANCOMYCIN 0.75 GM in IV D5W 250 ML IV SCH (12:16)
[2018-02-10 16:00] VITALS: BP 124/60
[2018-02-10] MEDS: JEVITY 1.2 CAL 1,000 ML BOTTLE GT PRN (17:52)
[2018-02-10] MEDS: MIRTAZAPINE 15 MG TABLET PO SCH (21:15)
[2018-02-10] MEDS: DONEPEZIL 5 MG TABLET PO SCH (21:15)
[2018-02-11] MEDS: ALBUTEROL FS 2.5 MG/0.5 ML VIAL.NEB NEB SCH ×6 (03:50→23:22)
[2018-02-11 04:00] VITALS: BP 115/62
[2018-02-11] MEDS: PIPERACILLIN /TAZOBACTAM 3.375 G in IV D5W 50 ML IV SCH ×2 (05:32→12:05)
[2018-02-11 06:22] LABS: HEMATOCRIT 31 % (39-51); HEMOGLOBIN 10.2 g/dL (13.5-17.5); LYMPHOCYTES # (AUTO) 0.3 /CMM (0.8-4.8); LYMPHOCYTES % (AUTO) 1.8 % (20.0-44.0); MEAN CORPUSCULAR HGB CONC 33 g/dl (31.0-36.0); MEAN CORPUSCULAR VOLUME 99 fL (80-96); MONOCYTES # (AUTO) 0.9 /CMM (0.1-1.30); MONOCYTES % (AUTO) 5.6 % (2.0-12.0); NEUTROPHILS # (AUTO) 14.3 /CMM (1.8-8.9); NEUTROPHILS % (AUTO) 92.6 % (43.0-81.0); PLATELET COUNT (AUTO) 113 /CMM (150-450); RDW COEFFICIENT OF VARIATION 17.4 (11.5-15.0); RED BLOOD CELL COUNT(AUTO) 3.09 MIL/uL (4.5-6.0); WHITE BLOOD COUNT (AUTO) 15.5 K/uL (4.3-11.0)
[2018-02-11 06:33] LABS: CALCIUM, SERUM 8.2 mg/dL (8.5-10.1); CARBON DIOXIDE 35 mmol/L (21-32); CHLORIDE 105 mmol/L (98-107); CREATININE 0.9 mg/dL (0.6-1.3); GLUCOSE 111 mg/dL (74-106); MAGNESIUM 2.4 mg/dL (1.8-2.4); PHOSPHORUS 3.1 mg/dL (2.5-4.9); POTASSIUM 4.1 mmol/L (3.5-5.1); SODIUM SERUM 142 mmol/L (136-145); UREA NITROGEN, BLOOD 28 mg/dL (7-18)
[2018-02-11] MEDS: ACETYLCYSTEINE 10% SOLN 400 MG/4 ML VIAL NEB SCH ×3 (07:29→23:22)
[2018-02-11] MEDS: IPRATROPIUM NEB FS 0.5 MG/2.5 ML AMPUL.NEB NEB SCH ×4 (07:29→19:22)
[2018-02-11 08:00] VITALS: BP 112/60
[2018-02-11] MEDS: FAMOTIDINE (20 MG) 20 MG TABLET PO SCH (08:34)
[2018-02-11] MEDS: OLANZAPINE 2.5 MG TABLET GT SCH ×2 (08:34→16:23)
[2018-02-11] MEDS: MIDODRINE HCL (5MG) 5 MG TABLET PO SCH ×3 (08:35→16:23)
[2018-02-11] MEDS: ASCORBIC ACID 500 MG TABLET PO SCH (08:35)
[2018-02-11] MEDS: DIVALPROEX SODIUM 125 MG CAP.SPRINK PO SCH ×2 (08:35→22:10)
[2018-02-11] MEDS: LACTOBACILLUS RHAMNOSUS GG 1 EACH CAP.SPRINK GT SCH ×2 (08:35→16:23)
[2018-02-11] MEDS: HYDROCORTISONE SOD SUCCINATE 100 MG/2 ML VIAL IV SCH ×3 (08:35→16:23)
[2018-02-11] MEDS: LEVOTHYROXINE SODIUM 25 MCG TABLET PO SCH (08:35)
[2018-02-11] MEDS: VANCOMYCIN 0.75 GM in IV D5W 250 ML IV SCH (11:17)
[2018-02-11 12:00] VITALS: BP 108/58
[2018-02-11 16:00] VITALS: BP 105/61
[2018-02-11] MEDS: JEVITY 1.2 CAL 1,000 ML BOTTLE GT PRN (16:17)
[2018-02-11 20:00] VITALS: BP 124/61
[2018-02-11] MEDS: MIRTAZAPINE 15 MG TABLET PO SCH (22:09)
[2018-02-11] MEDS: DONEPEZIL 5 MG TABLET PO SCH (22:10)
[2018-02-12] MEDS: ALBUTEROL FS 2.5 MG/0.5 ML VIAL.NEB NEB SCH ×5 (03:21→19:27)
[2018-02-12 04:00] VITALS: BP_SYST 119; BP_DIAS 73; BP_DIAS 79
[2018-02-12] MEDS: Z GUARD REMEDY 2 OZ OINT TP PRN (06:40)
[2018-02-12 06:56] LABS: BASOPHILS % (AUTO) 0.1 % (0.0-2.0); HEMATOCRIT 33 % (39-51); HEMOGLOBIN 10.9 g/dL (13.5-17.5); LYMPHOCYTES # (AUTO) 0.4 /CMM (0.8-4.8); LYMPHOCYTES % (AUTO) 2.3 % (20.0-44.0); MEAN CORPUSCULAR HGB CONC 33 g/dl (31.0-36.0); MEAN CORPUSCULAR VOLUME 99 fL (80-96); MONOCYTES # (AUTO) 0.7 /CMM (0.1-1.30); MONOCYTES % (AUTO) 4.2 % (2.0-12.0); NEUTROPHILS # (AUTO) 15.9 /CMM (1.8-8.9); NEUTROPHILS % (AUTO) 93.4 % (43.0-81.0); PLATELET COUNT (AUTO) 124 /CMM (150-450); RDW COEFFICIENT OF VARIATION 18.8 (11.5-15.0); RED BLOOD CELL COUNT(AUTO) 3.36 MIL/uL (4.5-6.0)
[2018-02-12 07:17] LABS: CALCIUM, SERUM 8.2 mg/dL (8.5-10.1); CARBON DIOXIDE 33 mmol/L (21-32); CHLORIDE 103 mmol/L (98-107); CREATININE 0.9 mg/dL (0.6-1.3); GLUCOSE 109 mg/dL (74-106); MAGNESIUM 2.3 mg/dL (1.8-2.4); PHOSPHORUS 3.1 mg/dL (2.5-4.9); POTASSIUM 4.1 mmol/L (3.5-5.1); SODIUM SERUM 140 mmol/L (136-145); UREA NITROGEN, BLOOD 30 mg/dL (7-18)
[2018-02-12] MEDS: IPRATROPIUM NEB FS 0.5 MG/2.5 ML AMPUL.NEB NEB SCH ×4 (07:49→19:27)
[2018-02-12] MEDS: ACETYLCYSTEINE 10% SOLN 400 MG/4 ML VIAL NEB SCH ×2 (07:49→15:42)
[2018-02-12 08:00] VITALS: BP 101/52
[2018-02-12 08:16] LABS: BAND % (MANUAL) 2 % (0.0-5.0); LYMPHOCYTES % (MANUAL) 2 % (16-48); MONOCYTES % (MANUAL) 5 % (0-11.0); MYELOCYTES % 1 % (0-0); NEUTROPHILS % (MANUAL) 90 (42-76)
[2018-02-12] MEDS: LEVOTHYROXINE SODIUM 25 MCG TABLET PO SCH (08:28)
[2018-02-12] MEDS: FAMOTIDINE (20 MG) 20 MG TABLET PO SCH (08:28)
[2018-02-12] MEDS: OLANZAPINE 2.5 MG TABLET GT SCH ×2 (08:28→16:23)
[2018-02-12] MEDS: DIVALPROEX SODIUM 125 MG CAP.SPRINK PO SCH ×2 (08:28→21:25)
[2018-02-12] MEDS: MIDODRINE HCL (5MG) 5 MG TABLET PO SCH ×3 (08:28→16:23)
[2018-02-12] MEDS: ASCORBIC ACID 500 MG TABLET PO SCH (08:28)
[2018-02-12] MEDS: HYDROCORTISONE SOD SUCCINATE 100 MG/2 ML VIAL IV SCH ×3 (08:28→16:23)
[2018-02-12] MEDS: LACTOBACILLUS RHAMNOSUS GG 1 EACH CAP.SPRINK GT SCH ×2 (08:28→16:23)
[2018-02-12] MEDS: JEVITY 1.2 CAL 1,000 ML BOTTLE GT PRN (11:54)
[2018-02-12 12:00] VITALS: BP 136/66
[2018-02-12] MEDS: PANTOPRAZOLE 40 MG VIAL IV SCH (12:20)
[2018-02-12 16:00] VITALS: BP 105/49
[2018-02-12 20:00] VITALS: BP 95/45
[2018-02-12] MEDS: MIRTAZAPINE 15 MG TABLET PO SCH (21:25)
[2018-02-12] MEDS: DONEPEZIL 5 MG TABLET PO SCH (21:25)
[2018-02-13] MEDS: ALBUTEROL FS 2.5 MG/0.5 ML VIAL.NEB NEB SCH ×7 (00:16→22:34)
[2018-02-13] MEDS: ACETYLCYSTEINE 10% SOLN 400 MG/4 ML VIAL NEB SCH ×4 (00:16→22:34)
[2018-02-13 04:00] VITALS: BP 99/55
[2018-02-13 06:49] LABS: BASOPHILS % (AUTO) 0.1 % (0.0-2.0); HEMATOCRIT 31 % (39-51); HEMOGLOBIN 9.9 g/dL (13.5-17.5); LYMPHOCYTES # (AUTO) 0.3 /CMM (0.8-4.8); LYMPHOCYTES % (AUTO) 1.9 % (20.0-44.0); MEAN CORPUSCULAR HGB CONC 32 g/dl (31.0-36.0); MEAN CORPUSCULAR VOLUME 100 fL (80-96); MONOCYTES # (AUTO) 0.7 /CMM (0.1-1.30); NEUTROPHILS # (AUTO) 12.8 /CMM (1.8-8.9); PLATELET COUNT (AUTO) 102 /CMM (150-450); RDW COEFFICIENT OF VARIATION 18.5 (11.5-15.0); RED BLOOD CELL COUNT(AUTO) 3.05 MIL/uL (4.5-6.0); WHITE BLOOD COUNT (AUTO) 13.7 K/uL (4.3-11.0)
[2018-02-13 07:02] LABS: CARBON DIOXIDE 38 mmol/L (21-32); CHLORIDE 104 mmol/L (98-107); CREATININE 0.8 mg/dL (0.6-1.3); GLUCOSE 131 mg/dL (74-106); MAGNESIUM 2.3 mg/dL (1.8-2.4); PHOSPHORUS 3.1 mg/dL (2.5-4.9); SODIUM SERUM 142 mmol/L (136-145); UREA NITROGEN, BLOOD 30 mg/dL (7-18)
[2018-02-13] MEDS: IPRATROPIUM NEB FS 0.5 MG/2.5 ML AMPUL.NEB NEB SCH ×4 (07:32→19:58)
[2018-02-13 08:00] VITALS: BP 109/54
[2018-02-13] MEDS: ASCORBIC ACID 500 MG TABLET PO SCH (08:24)
[2018-02-13] MEDS: LEVOTHYROXINE SODIUM 25 MCG TABLET PO SCH (08:24)
[2018-02-13] MEDS: MIDODRINE HCL (5MG) 5 MG TABLET PO SCH ×3 (08:24→17:00)
[2018-02-13] MEDS: OLANZAPINE 2.5 MG TABLET GT SCH ×2 (08:25→16:15)
[2018-02-13] MEDS: DIVALPROEX SODIUM 125 MG CAP.SPRINK PO SCH ×2 (08:25→21:19)
[2018-02-13] MEDS: LACTOBACILLUS RHAMNOSUS GG 1 EACH CAP.SPRINK GT SCH ×2 (08:25→16:15)
[2018-02-13] MEDS: HYDROCORTISONE SOD SUCCINATE 100 MG/2 ML VIAL IV SCH ×3 (08:25→16:15)
[2018-02-13] MEDS: FAMOTIDINE (20 MG) 20 MG TABLET PO SCH (08:25)
[2018-02-13] MEDS: Z GUARD REMEDY 2 OZ OINT TP PRN (08:26)
[2018-02-13 08:44] LABS: BAND % (MANUAL) 3 % (0.0-5.0); METAMYELOCYTES % 1 % (0-0); MONOCYTES % (MANUAL) 3 % (0-11.0); MYELOCYTES % 1 % (0-0); NEUTROPHILS % (MANUAL) 92 (42-76)
[2018-02-13 09:04] LABS: LYMPHOCYTES % (MANUAL) 0 % (16-48)
[2018-02-13] MEDS: JEVITY 1.2 CAL 1,000 ML BOTTLE GT PRN (10:19)
[2018-02-13] MEDS: PANTOPRAZOLE 40 MG VIAL IV SCH (11:32)
[2018-02-13 16:00] VITALS: BP 134/92
[2018-02-13 20:00] VITALS: BP 108/68
[2018-02-13] MEDS: MIRTAZAPINE 15 MG TABLET PO SCH (21:19)
[2018-02-13] MEDS: DONEPEZIL 5 MG TABLET PO SCH (21:19)
[2018-02-14] MEDS: ALBUTEROL FS 2.5 MG/0.5 ML VIAL.NEB NEB SCH ×6 (02:54→22:53)
[2018-02-14 04:00] VITALS: BP 112/70
[2018-02-14 06:53] LABS: BASOPHILS % (AUTO) 0.2 % (0.0-2.0); HEMATOCRIT 34 % (39-51); LYMPHOCYTES # (AUTO) 0.3 /CMM (0.8-4.8); LYMPHOCYTES % (AUTO) 1.9 % (20.0-44.0); MEAN CORPUSCULAR HGB CONC 33 g/dl (31.0-36.0); MEAN CORPUSCULAR VOLUME 100 fL (80-96); MONOCYTES # (AUTO) 0.8 /CMM (0.1-1.30); MONOCYTES % (AUTO) 4.4 % (2.0-12.0); NEUTROPHILS # (AUTO) 16.9 /CMM (1.8-8.9); NEUTROPHILS % (AUTO) 93.5 % (43.0-81.0); PLATELET COUNT (AUTO) 111 /CMM (150-450); RDW COEFFICIENT OF VARIATION 18.2 (11.5-15.0); RED BLOOD CELL COUNT(AUTO) 3.34 MIL/uL (4.5-6.0); WHITE BLOOD COUNT (AUTO) 18.1 K/uL (4.3-11.0)
[2018-02-14 07:02] LABS: ALANINE AMINOTRANSFERASE 42 U/L (12-78); ALBUMIN 1.8 g/dL (3.4-5.0); ALKALINE PHOSPHATASE 78 U/L (46-116); ASPARTATE AMINOTRANSFERASE 35 U/L (15-37); BILIRUBIN,TOTAL 0.5 mg/dL (0.2-1.0); CALCIUM, SERUM 8.1 mg/dL (8.5-10.1); CARBON DIOXIDE 36 mmol/L (21-32); CHLORIDE 105 mmol/L (98-107); CREATININE 0.8 mg/dL (0.6-1.3); GLUCOSE 83 mg/dL (74-106); SODIUM SERUM 144 mmol/L (136-145); TOTAL PROTEIN, SERUM 5.2 g/dL (6.4-8.2); UREA NITROGEN, BLOOD 28 mg/dL (7-18)
[2018-02-14 07:10] LABS: INR 1.05 (0.87-1.13)
[2018-02-14 08:00] VITALS: BP 134/83
[2018-02-14] MEDS: IPRATROPIUM NEB FS 0.5 MG/2.5 ML AMPUL.NEB NEB SCH ×4 (08:08→19:46)
[2018-02-14] MEDS: ACETYLCYSTEINE 10% SOLN 400 MG/4 ML VIAL NEB SCH ×3 (08:09→22:53)
[2018-02-14] MEDS: MIDODRINE HCL (5MG) 5 MG TABLET PO SCH ×3 (09:00→16:30)
[2018-02-14] MEDS: FAMOTIDINE (20 MG) 20 MG TABLET PO SCH (09:00)
[2018-02-14] MEDS: ASCORBIC ACID 500 MG TABLET PO SCH (09:00)
[2018-02-14] MEDS: DIVALPROEX SODIUM 125 MG CAP.SPRINK PO SCH ×2 (09:00→21:31)
[2018-02-14] MEDS: OLANZAPINE 2.5 MG TABLET GT SCH ×2 (09:00→16:29)
[2018-02-14] MEDS: LEVOTHYROXINE SODIUM 25 MCG TABLET PO SCH (09:00)
[2018-02-14] MEDS: LACTOBACILLUS RHAMNOSUS GG 1 EACH CAP.SPRINK GT SCH ×2 (09:00→16:29)
[2018-02-14] MEDS: HYDROCORTISONE SOD SUCCINATE 100 MG/2 ML VIAL IV SCH (09:38)
[2018-02-14 09:52] LABS: BAND % (MANUAL) 7 % (0.0-5.0); MONOCYTES % (MANUAL) 5 % (0-11.0); NEUTROPHILS % (MANUAL) 88 (42-76)
[2018-02-14 11:19] VITALS: BP 129/75
[2018-02-14 12:00] VITALS: BP 129/75
[2018-02-14] MEDS: PANTOPRAZOLE 40 MG VIAL IV SCH (14:01)
[2018-02-14] MEDS: methylPREDNISolone SOD SUCC 40 MG/ML VIAL IV SCH ×2 (14:02→16:29)
[2018-02-14] MEDS: ACETAMINOPHEN 325 MG TABLET PO PRN (14:15)
[2018-02-14 16:00] VITALS: BP_SYST 113; BP_SYST 129; BP_DIAS 69; BP_DIAS 75
[2018-02-14] MEDS ORDERED: JEVITY 1.2 CAL 1,000 ML BOTTLE GT PRN (16:30)
[2018-02-14 19:58] VITALS: BP 112/56
[2018-02-14] MEDS: MIRTAZAPINE 15 MG TABLET PO SCH (21:31)
[2018-02-14] MEDS: DONEPEZIL 5 MG TABLET PO SCH (21:32)
[2018-02-15] MEDS: ALBUTEROL FS 2.5 MG/0.5 ML VIAL.NEB NEB SCH ×3 (02:41→11:31)
[2018-02-15 04:00] VITALS: BP 109/64
[2018-02-15] MEDS: IPRATROPIUM NEB FS 0.5 MG/2.5 ML AMPUL.NEB NEB SCH ×2 (07:22→11:31)
[2018-02-15] MEDS: ACETYLCYSTEINE 10% SOLN 400 MG/4 ML VIAL NEB SCH (07:22)
[2018-02-15 08:00] VITALS: BP 113/69
[2018-02-15] MEDS: methylPREDNISolone SOD SUCC 40 MG/ML VIAL IV SCH ×2 (08:13→12:19)
[2018-02-15] MEDS: DIVALPROEX SODIUM 125 MG CAP.SPRINK PO SCH (08:14)
[2018-02-15] MEDS: FAMOTIDINE (20 MG) 20 MG TABLET PO SCH (08:14)
[2018-02-15] MEDS: LEVOTHYROXINE SODIUM 25 MCG TABLET PO SCH (08:14)
[2018-02-15] MEDS: LACTOBACILLUS RHAMNOSUS GG 1 EACH CAP.SPRINK GT SCH (08:14)
[2018-02-15] MEDS: OLANZAPINE 2.5 MG TABLET GT SCH (08:14)
[2018-02-15] MEDS: ASCORBIC ACID 500 MG TABLET PO SCH (08:14)
[2018-02-15] MEDS: MIDODRINE HCL (5MG) 5 MG TABLET PO SCH ×2 (08:15→12:23)
[2018-02-15] MEDS ORDERED: OLAN2.5T3 GT (11:08)
[2018-02-15] MEDS ORDERED: ALBU2.5V13 NEB (11:08)
[2018-02-15] MEDS ORDERED: methylPREDNISolone SOD SUCC IV (11:08)
[2018-02-15] MEDS ORDERED: Midodrine Hcl (5MG) PO (11:08)
[2018-02-15] MEDS ORDERED: DIVA125C2 PO (11:08)
[2018-02-15] MEDS ORDERED: IPRA0.2S9 NEB (11:08)
[2018-02-15] MEDS ORDERED: LACT-209 GT (11:08)
[2018-02-15] MEDS: PANTOPRAZOLE 40 MG VIAL IV SCH (12:19)
[2018-02-15 12:23] VITALS: BP 112/68
[2018-02-15 13:46] LABS: HEMATOCRIT 36 % (39-51); HEMOGLOBIN 11.6 g/dL (13.5-17.5); LYMPHOCYTES # (AUTO) 0.4 /CMM (0.8-4.8); LYMPHOCYTES % (AUTO) 1.7 % (20.0-44.0); MEAN CORPUSCULAR HGB CONC 33 g/dl (31.0-36.0); MEAN CORPUSCULAR VOLUME 100 fL (80-96); MONOCYTES # (AUTO) 0.7 /CMM (0.1-1.30); MONOCYTES % (AUTO) 3.2 % (2.0-12.0); NEUTROPHILS # (AUTO) 21.7 /CMM (1.8-8.9); NEUTROPHILS % (AUTO) 95.1 % (43.0-81.0); PLATELET COUNT (AUTO) 108 /CMM (150-450); RDW COEFFICIENT OF VARIATION 19.3 (11.5-15.0); RED BLOOD CELL COUNT(AUTO) 3.56 MIL/uL (4.5-6.0); WHITE BLOOD COUNT (AUTO) 22.9 K/uL (4.3-11.0)
[2018-02-15 14:07] LABS: CALCIUM, SERUM 8.5 mg/dL (8.5-10.1); CARBON DIOXIDE 33 mmol/L (21-32); CHLORIDE 105 mmol/L (98-107); GLUCOSE 139 mg/dL (74-106); POTASSIUM 4.1 mmol/L (3.5-5.1); SODIUM SERUM 143 mmol/L (136-145); UREA NITROGEN, BLOOD 34 mg/dL (7-18)
[2018-02-15 14:08] LABS: MAGNESIUM 2.2 mg/dL (1.8-2.4); PHOSPHORUS 3.5 mg/dL (2.5-4.9)
[2018-02-15 14:50] LABS: BAND % (MANUAL) 3 % (0.0-5.0); LYMPHOCYTES % (MANUAL) 1 % (16-48); MONOCYTES % (MANUAL) 5 % (0-11.0); NEUTROPHILS % (MANUAL) 91 (42-76)
== END 2018-02-15 11:40 | DRG 871 ==
LOC: ER 08:06 → TELE-TD 10:08 → TELE1 01-20 11:05 → ICU 01-20 19:11 → TELE1 02-02 03:01 → ICU 02-02 09:50 → TELE-TD 02-07 13:10 → MEDSG1 02-08 10:15
PROVIDERS: ADMIT Internal Medicine; ATTEND Internal Medicine
PROC: B548ZZA Ultrasonography of Superior Vena Cava, Guidance (ICD-10-PCS; 2018-01-21)
PROC: 07DR3ZX Extraction of Iliac Bone Marrow, Percutaneous Approach, Diagnostic (ICD-10-PCS; 2018-01-23)
PROC: 0DH63UZ Insertion of Feeding Device into Stomach, Percutaneous Approach (ICD-10-PCS; 2018-02-14)
PROC: 3E0G76Z Introduction of Nutritional Substance into Upper GI, Via Natural or Artificial Opening (ICD-10-PCS; 2018-02-14)
PROC: 02HV33Z Insertion of Infusion Device into Superior Vena Cava, Percutaneous Approach (ICD-10-PCS; principal; 2018-02-14 10:00)
DX: A41.9 Sepsis, unspecified organism (principal); J69.0 Pneumonitis due to inhalation of food and vomit; N17.0 Acute kidney failure with tubular necrosis; R65.21 Severe sepsis with septic shock; E43 Unspecified severe protein-calorie malnutrition; I21.A1 Myocardial infarction type 2; J96.01 Acute respiratory failure with hypoxia; G93.40 Encephalopathy, unspecified; I13.0 Hypertensive heart and chronic kidney disease with heart failure and stage 1 through stage 4 chronic kidney disease, or unspecified chronic kidney disease; E44.1 Mild protein-calorie malnutrition; I50.32 Chronic diastolic (congestive) heart failure; E87.2 Acidosis; N39.0 Urinary tract infection, site not specified; E87.0 Hyperosmolality and hypernatremia; F02.81 Dementia in other diseases classified elsewhere, unspecified severity, with behavioral disturbance; D61.818 Other pancytopenia; D68.9 Coagulation defect, unspecified; E27.40 Unspecified adrenocortical insufficiency; K21.9 Gastro-esophageal reflux disease without esophagitis; E86.0 Dehydration; E78.5 Hyperlipidemia, unspecified; E03.9 Hypothyroidism, unspecified; Z95.0 Presence of cardiac pacemaker; Z66 Do not resuscitate; N18.9 Chronic kidney disease, unspecified; J44.9 Chronic obstructive pulmonary disease, unspecified; F32.9 Major depressive disorder, single episode, unspecified; Z51.5 Encounter for palliative care; Z79.82 Long term (current) use of aspirin; Z79.899 Other long term (current) drug therapy; I25.10 Atherosclerotic heart disease of native coronary artery without angina pectoris; I71.4 Abdominal aortic aneurysm, without rupture; R13.10 Dysphagia, unspecified; K80.20 Calculus of gallbladder without cholecystitis without obstruction; R74.0 Nonspecific elevation of levels of transaminase and lactic acid dehydrogenase [LDH]; R56.9 Unspecified convulsions; J84.10 Pulmonary fibrosis, unspecified; Y95 Nosocomial condition; B96.89 Other specified bacterial agents as the cause of diseases classified elsewhere; E87.6 Hypokalemia; G30.9 Alzheimer's disease, unspecified; F94.0 Selective mutism; E86.1 Hypovolemia; D69.59 Other secondary thrombocytopenia; E53.8 Deficiency of other specified B group vitamins; F29 Unspecified psychosis not due to a substance or known physiological condition; F09 Unspecified mental disorder due to known physiological condition; R62.7 Adult failure to thrive; K29.70 Gastritis, unspecified, without bleeding; L30.4 Erythema intertrigo
CPT/HCPCS: 31720; 36415; 36569; 36600; 43246; 70450-TC; 71045-TC; 71250-TC; 80048-TC; 80053-TC; 80061-TC; 80076-TC; 80164-TC; 80202-TC; 81000-TC; 82040-TC; 82533; 82728-TC; 82746; 83540-TC; 83605-TC; 83690-TC; 83735-TC; 83880; 84100-TC; 84439-TC; 84443-TC; 84484-TC; 85025-TC; 85396; 85610-TC; 85730-TC; 86850-TC; 87040-TC; 87081-TC; 87086-TC; 87186-TC; 92526; 92611-TC; 93307-TC; 94762-TC; 94799-TC; A4216; A4217; A4606; A4624; A6402; A6403; C1751; C9113; J0690; J0696; J1250; J1650; J1720; J1940; J2185; J2370; J2543; J2704; J2920; J2930; J3370; J3480; J3490; J7030; J7040; J7042; J7050; J7060; P9047; Z7610